=== PATIENT | male | born 1995 | race Caucasian/White ===

== ENCOUNTER 2025-06-26 19:32 | Emergency (ER) | payer OTHER, SELFPAY ==
[2025-06-26 19:40] VITALS: BP 138/80; PULSE 81; RESP 17; TEMP 36.4; O2SAT 97; BMI 27.4
[2025-06-26 20:07] VITALS: BP 120/85; PULSE 78; RESP 18; TEMP 36.4; O2SAT 97
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
[2025-06-26 20:30] LABS: MANUAL DIFF FLAG NO
[2025-06-26] MEDS: Post Exposure Medication Kit 1 KIT PO (20:36)
[2025-06-26] MEDS: Tetracaine HCl 0.5% Oph Sol 5 ML DROPS 3 DROP EYE-BOTH (20:39)
[2025-06-26 20:48] LABS: Alanine Aminotransferase 31 U/L (0-40); Albumin Level 4.4 g/dL (3.5-5.0); Alkaline Phosphatase 58 U/L (39-117); Amylase 41 U/L (28-100); Aspartate Amino Transferase 24 U/L (5-37); Creatinine Clr Calc Pharmacy 134.1; Estimated Glomerular Filt Rate > 60; Total Protein 6.7 g/dL (6.5-8.0)
[2025-06-26 20:49] LABS: Hematocrit 41.8 % (42.0-52.0); Hemoglobin 14.7 g/dl (14.0-18.0); Imm Gran Abs Auto 0.02 X10*3/uL (0.00-0.03); Imm Gran Pct Auto 0.3 % (0.0-0.4); Lymphocytes Absolute Auto 2.4 X10*3/uL (1.2-4.9); Mean Corpuscular HGB Conc 35.2 g/dl (31.0-36.0); Mean Corpuscular Hemoglobin 31.0 pg (27.0-33.0); Mean Corpuscular Volume 88.2 fL (80.0-98.0); NRBC Abs Auto 0.000 X10*3/uL (0.0-0.012); NRBC Pct Auto 0.0 /100WBC (0.0-0.2); Platelet Count 188 X10*3/uL (160-400); Red Blood Count 4.74 X10*6/uL (4.60-5.80); White Blood Count 6.2 X10*3/uL (4.8-10.8)
--- NOTE | 2025-06-26 21:00 | PC.NURSE ---
pt medicated per JAN, eyes irragated w/ 1L NS
[2025-06-26 21:38] VITALS: BP 113/82; PULSE 73; RESP 18; TEMP 37; O2SAT 98
[2025-06-27 08:15] LABS: HBS Num1 3.51 mIU/mL (0-7.99); HBc Num1 0.07 S/CO (0.00-0.79); HBsAGNum1 0.38 S/CO (0.00-0.99); HIV Num 1 0.06 S/CO (0.00-0.99); Hepatitis B Surface Antigen Negative (Negative); ~HepC Num1 0.07 S/CO (0.00-0.79); ~Hepatitis B Surface Antibody NONREACTIVE (Nonreactive); ~Hepatitis C Antibody Nonreactive (Nonreactive)
== END 2025-06-26 21:40 | disposition home or self-care (01) ==
PROVIDERS: Physician Assistant; Emergency Provider Emergency Medicine
DX: Z77.21 Contact with and (suspected) exposure to potentially hazardous body fluids (principal); Z79.899 Other long term (current) drug therapy
CPT/HCPCS: 36415; 80076; 82150; 82565; 85025; 86704; 86706; 86803; 87340; 87389; 99283; 99284

== ENCOUNTER → 2025-07-02 10:15 | Outpatient (BNVA) | payer OTHER, SELFPAY | PROVIDERS: Visit Provider Physician Assistant Medical | DX: Z77.21 Contact with and (suspected) exposure to potentially hazardous body fluids (principal); Z02.79 Encounter for issue of other medical certificate | CPT/HCPCS: 99202 ==

== ENCOUNTER → 2025-07-10 09:54 | Outpatient (BNVA) | payer OTHER, SELFPAY | PROVIDERS: Visit Provider Physician Assistant Medical | DX: Z77.21 Contact with and (suspected) exposure to potentially hazardous body fluids (principal) | CPT/HCPCS: 82150; 82565; 84450; 84460; 85025; 99213 ==

== ENCOUNTER → 2025-07-24 10:30 | Outpatient (BNVA) | payer OTHER, SELFPAY | PROVIDERS: Visit Provider Physician Assistant Medical | DX: Z77.21 Contact with and (suspected) exposure to potentially hazardous body fluids (principal); Z02.79 Encounter for issue of other medical certificate | CPT/HCPCS: 82150; 82565; 84450; 84460; 85025; 99213 ==

== ENCOUNTER → 2025-08-07 09:56 | Outpatient (BNVA) | payer OTHER, SELFPAY | DX: Z77.21 Contact with and (suspected) exposure to potentially hazardous body fluids (principal); Z02.79 Encounter for issue of other medical certificate | CPT/HCPCS: 84450; 84460; 86706; 87389; 99211 ==

== ENCOUNTER → 2025-09-25 10:04 | Outpatient (BNVA) | payer OTHER, SELFPAY ==
--- OUTSIDE RECORDS SUMMARY | 2025-02-13 10:00 | XMS_ITS ---
Author Organization [facility] Address [address] [place] [address] Care Team Providers Care Tape Rules Printing Machine Operator Name Role Phone Jarad Morgan Primary Care Provider Unavail Lydia Abraham Unavailable [phone] REASON FOR VISIT 1 YEAR Encounters Encounter Location Date Provider Diagnosis [facility] 2 [facility] [address] [place] [address] 02/13/2025 Lydia Nataliia Plan Of Treatment Next Appt Details Provider Name:Lydia Tigist, 08/22/2026 10:30:00 AM, 2 [facility], [address], [place], [address], Progress Notes * Dewayne SIERRA RDOB:1995 (30 yo M)Acc No.[id number]:02/13/2025 UNLOCKED PROGRESS NOTE Patient: Gregg mendietaandres Dewayne Delcid Provider: John William MD :1995 A ge:29 Y S ex:Male Date:02/13/2025 Address:[address] [id number] Pcp:LATESHA Dumas Subjective: * Chief Complaints: * 1 YEAR * The named appointment provid er may or may not be the originator of this progress note, and it is not deemed complete until electronically signed by the appointment provider. Sign off status: Pending * Provider: John William MD Date: 0 02/13/2025 Generated for Summer yañez/Janie/Aniya on: 1 11/25/2024 11:47 AM EST
--- OUTSIDE RECORDS SUMMARY | 2025-03-18 08:00 | XMS_ITS ---
Author Organization [facility] Address [address] [place] [address] Care Team Providers Care Service Delivery Management Consultant Name Role Phone Jarad Morgan Primary Care Provider Unavail able Lydia William Unavailable [phone] Angel Lorenz Unavailable [phone] REASON FOR VISIT B/L ankle pain Encounters Encounter Location Date Provider Diagnosis PD-Podiatry [facility] [address] [place] [address] 03/18/2025 Angel Lorenz Plan Of Treatment Next Appt Details Provider Name:Lydia Tigist, 08/22/2026 10:30:00 AM, [facility], [address], [place], [address], Progress Notes * Dewayne LUONG RDOB:1995 (30 yo M)Acc No.[id number]:03/18/2025 UNLOCKED PROGRESS NOTE Patient: Gregg mcknightDewayne Provider: Musa Lorenz DPM :1995 A ge:29 Y S ex:Male Date:03/18/2025 Address:[address] [id number] Pcp:LATESHA Dumas Subjective: * Chief Complaints: * B /L ankle pain * The named appointment provid er may or may not be the originator of this progress note, and it is not deemed complete until electronically signed by the appointment provider. Sign off status: Pending * Provider: Musa Lorenz DPM Date: 0 03/18/2025 Generated for Summer Hernandez on: 11/25/2024 11:48 AM EST
--- OUTSIDE RECORDS SUMMARY | 2025-09-25 11:47 | XMS_ITS | Clinical Summary ---
Author Organization [facility] Address [address] [place] [address] Care Team Providers [employer] Lawyer Name Role Phone Jarad Roberson Primary Care Provider [phone] Andrews Aldana MD Unavailable [phone] Trae Fuller MD Unavailable Lydia William MD Unavailable Ry Almeida MD Unavailable Allergies Active Allergy Reactions Criticality Noted Date Comments Adhesive Rash Low 09/11/2025 Seasonal 11/19/2013 Sulfa (Sulfonamide Antibiotics) Rash Low 04/21 Medications * This document contains information received from the source organization and may not represent a complete record from that organization. hydrOXYzine HCl (ATARAX) 25 MG tablet Take 1 tablet (25 mg total) by mouth See Admin Instructions. Take 1-2 tablets daily as needed for anxiety 30 tablet 0 Active Additional Information Patient taking differently: 10 mgOral4 times daily PRN, as needed for anxiety, (No instructions reported), Reported on 09/18/2025 methylphenidate HCl (RITALIN) 5 MG tablet Take 1 (one) tablet (5 mg total) by mouth 4 (four) times a day. 4 Active dexmethylphenid ate (FOCALIN XR) 10 MG ER multiphase 50-50 capsule Take 1 (one) capsule (10 mg total) by mouth once daily. 4 Active traZODone (DESYREL) 50 MG tabletIndicatio ns:insomnia associated with depression Take 1 (one) tablet (50 mg total) by mouth nightly as needed (sleep). Active albuterol (PROVENTIL HFA;VENTOLIN HFA;PROAIR HFA) 90 mcg/actuation HFA inhaler Inhale 2 puffs every 4 hours by inhalation route. Active ALPRAZolam (XANAX) 0.25 MG tablet TAKE 1 TABLET BY MOUTH EVERY DAY NEEDED FOR SEVERE ANXIETY Active azithromycin (ZITHROMAX) 250 MG tablet TAKE 2 TABLETS (500 MG) BY ORAL ROUTE ONCE DAILY FOR 1 DAY THEN 1 TABLET (250 MG) BY ORAL ROUTE ONCE DAILY FOR 4 DAYS Active emtricitabine-t enofovir, TDF, (TRUVADA) 200-300 mg tablet Take 1 (one) tablet by mouth once daily. Active hydrOXYzine HCL (ATARAX) 10 MG tablet 1 (one) tablet (10 mg total) 2 (two) times a day as needed. Active valACYclovir (VALTREX) 1000 MG tablet Take 1 (one) tablet (1,000 mg total) by mouth once daily as needed. Active multivitamin,tx -minerals tablet Take 1 (one) tablet by mouth once daily. Active Active Problems Problem Noted Date Diagnosed Date History of oppositional defiant disorder 025 Mixed obsessional thoughts and acts 01/09/2020 Bipolar disorder 12/17/2019 Attention deficit hyperactiv ity disorder (ADHD), combined type 07/24/2019 PHILL (generalized anxiety disorder) 07/24/2019 Unspecified mood (affective) disorder 07/24/2019 Resolved Problems Problem Noted Date Diagnosed Date Resolved Date Asthma 11/20/2013 07/24/2019 Multiple fractures 11/20/2013 9 Encounters * This document contains information received from the source organization and may not represent a complete record from that organization. Date Type Department Care Team Description 09/18/2025 12:48 PM EDT - 09/18/2025 2:00 PM EDT Surgery [facility] Ambulatory Surgery [address] [place] [address] Demetrio Shay MD EXCISION OF BACK MASS 09/18/2025 11:02 AM EDT - 09/18/2025 3:05 PM EDT Hospital Encounter [facility] Ambulatory Surgery [address] [place] [address] Demetrio Shay MD Discharge Disposition: Home or Self Care 09/11/2025 1:45 PM EDT Pre-Admission Testing [facility] Pre Admission Testing [address] [place] [address] Adilia Martin RN from Last 3 Months Family History * Patient is adopted Medical History Relation Name Comments No known problems Father Bipolar disorder Maternal Grandfather Not confirmed, question of history of BPAD Major depressive disorder Mother Se asonal variation Relation Name Status Comments Adoptive Mother Alive Father Alive Maternal Grandfather Mother Alive Social History Tobacco Use Types Packs/Day Years Used Date Smoking Tobacco: Former Cigarettes Smokeless Tobacco: Current Chew Tobacco Cessation:Ready to Q uit: Not Asked; Counseling Given: Not Answered Comments:Rare in past Alcohol Use Standard Drinks/Week Comments Yes 1 (1 standard drink = 0.6 oz pur e alcohol) rare Humiliation, Afraid, Rape, and Kick questionnair e Answer Date Recorded Within the last year, have y ou been afraid of your partner or ex-partner? No 09/18/2025 Emotionally Abused Not on file 09/18/2025 Physically Abused Not on file 09/18/2025 Sexually Abused Not on file 09/18/2025 Overall Financial Resource Strain (CARDIA) Answe r Date Recorded How hard is it for you to pa y for the very basics like food, housing, medical care, and heating? Not hard at all 09/18/2025 Hunger Vital Sign Answer Date Recorded Within the past 12 months, y ou worried that your food would run out before you got the money to buy more. Never true 09/18/20 25 Ran Out of Food in the Last Year Not on file 09/18/2025 PRAPARE - Transportation Answer Date Re corded In the past 12 months, has l ack of transportation kept you from medical appointments or from getting medications? No 08/22 In the past 12 months, has l ack of transportation kept you from meetings, work, or from getting things needed for daily living? No 09/18/2025 Housing Stability Vital Sign Answer Jaya e Recorded Unable to Pay for Housing in the Last Year Not o n file 09/18/2025 Number of Times Moved in the Last Year Not on fi le 09/18/2025 At any time in the past 12 m [place], were you homeless or living in a half-way (including now)? No 09/18/2025 Sex and Gender Information Value Date Recorded Sex Assigned at Male 09/19/2019 8:17 PM EDT Legal Sex Male 10:38 PM EST Gender Identity Male 09/19/2019 8:17 PM EDT Sexual Orientation Something else 09/19/2019 8: 17 PM EDT Last Filed Vital Signs Vital Sign Reading Time Taken Comments Blood Pressure 108/73 09/18/2025 2:45 PM EDT Pulse 73 09/18/2025 2:45 PM EDT Temperature 36.3 C (97.4 F) 09/18/2025 2:04 PM EDT Respiratory Rate 14 09/18/2025 2:45 PM EDT Oxygen Saturation 100% 09/18/2025 2:45 PM EDT Inhaled Oxygen Concentration - - Weight 77.1 kg (170 lb) 09/11/2025 2:51 PM EDT Height 172.7 cm (5' 8 ) 09/11/2025 2:51 PM EDT Body Mass Index 25.85 09/11/2025 2:51 PM EDT Plan of Treatment Health Maintenance Due Date Last Done Comments MENINGOCOCCAL B VACCINE (2 of 2 - Trumenba SCDM 2-dose series) 08/26/2018 04/26/2018, 04/20/2017 INFLUENZA VACCINE (#1) 2025 , 09/23/2023, 10/07/2022, Additional history exists DTAP/TDAP/TD VACCINES (9 - Td or Tdap) 10/26/2031 10/26/2021, 02/06/2019, 10/02/2017, Additional history exists ZOSTER VACCINE (1 of 2) 2047 12/02/2008, 08/15 RSV IMMUNIZATION (1 - 1-dose 75+ series) 2072 HIB VACCINES Completed 11/07/1998, 01/19, 1997, Additional history exists MMR VACCINES Completed 10/03/2002, 08/15/1998 VARICELLA VACCINES Completed 12/02/2008, 08/15/1998 HEPATITIS A VACCINES Completed 12/13/2011, 12/13/2011, 12/09/2010, Additional history exists HPV VACCINE Completed 02/02/2013, 01/19, 10/11/2012, Additional history exists MENINGOCOCCAL ACYW VACCINE Completed 10/26, 02/04/2014, 02/04/2014, Additional history exists IPV VACCINES Completed 12/01/2021, 07/22, 08/15/1998, Additional history exists HEPATITIS C SCREENING Completed 06/18/2024 , 06/14/2023, 04/26/2018 COVID-19 IMMUNIZATION Completed 08/30/2024 , 09/23/2023, 09/24/2021, Additional history exists HEPATITIS B VACCINES Completed 07/02/2025, 06/02/2022, 12/01/2021, Additional history exists PNEUMOCOCCAL VACCINE Aged Out No long er eligible based on patient's age to complete this topic ROTAVIRUS VACCINES Aged Out No longer eligible based on patient's age to complete this topic Procedures Procedure Name Priority Date/Time Associated Diagnosis Comments IA EXC TUMOR SOFT TISS BACK/FLANK SUBFASCIAL 5 CM/> 09/18/2025 1:00 PM EDT Mass on back MOLECULAR ONCOLOGY SENDOUTS Routine 09/18/2025 11:05 AM EDT HEPATITIS C ANTIBODY Routine 06/18/2024 3:43 PM EDT Routine general medical examination at a health care facility Encounter for screening for infections with predominantly sexual mode of transmission from Last 3 Months or Most Recently Relevant to Health Maintenance Results * Hepatitis C Antibody (06/18/2024 3:43 PM EDT) HCV Ab Qualitative Non Reac Non Reactive 06/18/2024 8:56 PM EDT [facility] Laboratory Blood specimen (specimen) 06/18/2024 3:43 PM EDT 06/18/2024 6:50 PM EDT us Levy Carver MD LAB BLOOD ORDERABLES Final Res ult [facility] [address] [place] [address] from Last 3 Months or Most Recently Relevant to Health Maintenance Insurance [employer] [facility] Care [employer] Corporation Lawyer Relationship Specialty Start Date End Date Jarad Roberson PA [address] [place], [place] [id number] [address] [place] [address] PCP - General Emergency Medicine 09/11/25 Andrews Aldana MD [address] [place] [address] Gastroenterology 09/11/25 Trae Fuller MD [address] [place] [address] Otolaryngology 09/11/25 Lydia William MD [address] [facility] [address] [place] [address] Urology 09/11/25 Ry Almeida MD [address] [place] [address] [address] [place] [address] Attending Physician Psychiatry 09/11/25
--- OUTSIDE RECORDS SUMMARY | 2025-09-25 11:47 | XMS_ITS | Patient Health Record ---
Author Organization [facility] Address [address] [place] [address] Care Team Providers Care Consultant Name Role Phone Jarad Morgan Primary Care Provider Unavail able Lydia William Unavailable [phone] Angel Lorenz Unavailable [phone] Allergies Allergen (clinical drug ingredient) Drug/Non Drug Allergy documented on EMR Reaction Allergy Type Onset Date Status Substance with sulfonamide structure and antibacterial mechanism of action (substance) Sulfa (uncoded) Rash Allergy Active Reason For Referral No Information Medications Medication SIG (Take, Route, Fr equency, Duration) Notes Start Date End Date Status Gabapentin Unknown traZODone HCl Unknow n hydrOXYzine HCl Unkn own Methylphenidate Unkn own Social History Tobacco Use: Social History Observation Description Date Details (start date - stop date) Never Smoker NA - NA Social History Tobacco Use: Social Info Question Answer Notes Tobacco Use: Date tobacco status assessed 08/23/2025 Status: Never tobacco user Additional Details Category Social Info Options Details Migrated Social History Migrated Social History Drugs/Alcohol:(Alcohol Screen (Audit-C)): Did you have a drink containing alcohol in the past year?: Yes, How often did you have a drink containing alcohol in the past year?: 2 to 4 times a month (2 points), How many drinks did you have on a typical day when you were drinking in the past year?: 1 or 2 drinks (0 point), How often did you have 6 or more drinks on one occasion in the past year?: Never (0 point), Points: 2, Interpretation: Negative ;Sun Protection(Indoor tanning):Denies ;Sun Protection(Sunscreen use):Uses sunscreen occasionally ;Tobacco Use:(Tobacco Use/Smoking:): Are you a: current smoker , How often do you smoke cigarettes?: every day, How many cigarettes a day do you smoke?: 6-10 ; Drugs/Alcohol: (Alcohol Screen):Points: 1, Interpretation: Negative Tobacco Use: (Tobacco Use/Smoking):Are you a:: never smoker Section Notes: works at [employer] works at [employer] works at [employer] works at [employer] works at [employer] works at [employer] works at [employer] works at [employer] Problems Problem Type SNOMED Code ICD Code Onset Dates Problem Status W/U Status Risk Notes Problem 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 Vital Signs Height 67 in 08/23/2025 Weight 150 lbs 08/23/2025 BMI 23.49 kg/m2 08/23/2025 Encounters Encounter Location Date Provider Diagnosis [facility] [address] [facility] [address] [place] [address] 08/23/2025 Lydia Martínezantoine Scrotal varices I86.1 ; Scrotal pain N50.82 and Pelvic and perineal pain unspecified side R10.20 [facility] 04/19/2025 Angel Kelechi Posterior tibial tendinitis, right leg M76.821 ; Posterior tibial tendinitis, left leg M76.822 ; Plantar fasciitis M72.2 and 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 [facility] [address] 03/22/2025 Angel Kelechi Posterior tibial tendinitis, right leg M76.821 ; Posterior tibial tendinitis, left leg M76.822 ; Plantar fasciitis M72.2 and 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 We reviewed his SAs which showed slightly increased agglutination and variable volume with otherwise acceptable values. Patient otherwise asymptomatic from varicocele. No indication to treat varicocele from fertility perspective. We reviewed his SA from 08/2023 which showed sperm agglutination but otherwise acceptable values. We reviewed his sperm antibody testing from 08/2023 which showed negative. He reports no interval issues. Exam stable. Discussed observation vs repair. Patient wishes to hold on repair. Will fu in 1 year with an updated SA. pe 08/23/2025 Scrotal pain (ICD-10 - N50.82) Rare, positional. Hold on varicocele repair. If worsens, can try high dose ibuprofen, scrotal support and warm baths pe 08/23/2025 Pelvic and perineal pain unspecified side (ICD-10 - R10.20) Rare perineal pain. Tender on exam. Discussed referral to PFPT. Patient declines at this time but may call to if changes mind. 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 Right foot with accessory ossicle navicular educated patient on etiology of problem. Patient requires supporting the large longitudinal arch to offload the plantar fascia as well as support the posterior tibial tendon and reduce strain on the tendon. OTC orthotics considering the patient's foot type would not be adequate. Patient requires medically necessary custom molded orthotics to support longitudinal arch as well as offload posterior tibial tendon bilateral foot. Will plan for scanning for custom molded orthotics. Follow-up as needed 04/19/2025 Other prior radiographs 3 views bilateral foot revealing low calcaneal inclination angle with anterior break cyma line bilaterally, no acute fracture or dislocation. Right foot with accessory ossicle navicular educated patient on etiology of problem. Patient requires supporting the large longitudinal arch to offload the plantar fascia as well as support the posterior tibial tendon and reduce strain on the tendon. OTC orthotics considering the patient's foot type would not be adequate. Patient requires medically necessary custom molded orthotics to support longitudinal arch as well as offload posterior tibial tendon bilateral foot. Patient computer scanned for custom molded orthotics today. Follow-up when orthotics fabricated. Plan Of Treatment Future Test Test Name Order Date Semen Analysis w/ Morphology BURT) 2025 Next Appt Details Provider Name:Lydiamaria ines Escoto, 08/22/2026 10:30:00 AM, [address] [facility], [facility] [address], [address], Insurance Providers Payer Name Payer Address Payer Phone Subscriber Number Group Number Insured Name Patient Relationship to Insured Coverage Start Date Coverage End Date [employer] [address] [place] [id number] Dewayne Walker Self - patient is the insured Medical (General) History Medical History History ICD Code Asthma Hay Fever Diarrhea Throat Pain Anxiety/Depression Muscle Aches congenital nevus Surgical History Surgery Date(Month/Year) tonsillectomy wisdom teeth extraction Tonsils/adenoids
--- OUTSIDE RECORDS SUMMARY | 2025-09-25 11:48 | XMS_ITS | Data Portability ---
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 Plan of Treatment Reminders Order Date Submit Date Provider Last Modified By Organization Details Last Modified Time Details Appointments Est Patient 20 2024 11:40A LATESHA Peoples Not available Not available Not available Lab vitamin D, 25-hydrox y, total, serum 2024 025 [facility] ([facility]), [address], [address], 08/15/2025 15:54:46 TSH, serum or plasma 2024 025 [facility] ([facility]), [address], [address], 08/15/2025 15:54:45 HbA1c (hemoglob in A1c), blood 2024 025 [facility] ([facility]), [address], [address], 08/15/2025 15:54:43 lipid panel, serum 2024 025 [facility] ([facility]), [address] [place], [address], 08/15/2025 15:54:44 CMP, serum or plasma 2024 025 [facility] ([facility]), [address], [place], [address], 08/15/2025 09:31:04 urinalysi s, complete [address] [facility] ([facility]), [address], [place], [address], 08/15/2025 09:31:04 CBC, reflex manual diff [address] [facility] ([facility]), [address], [place], [address], 08/15/2025 09:31:05 CMP, serum or plasma 2024 025 [facility] ([facility]), [address], [place], [address], 08/15/2025 15:54:42 hepatitis C virus Ab, serum 2024 025 [facility] ([facility]), [address], [place], [address], 08/15/2025 15:54:44 CT, DNA, qual, PCR, unspecifi ed specimen 2023 024 [facility]. [id number] [facility] ([facility]), [address], [place], [address], 08/13/2025 21:10:45 treponema pallidum igg+igm Ab, serum 2023 024 [facility]. [id number] [facility] ([facility]), [address], [place], [address], 08/13/2025 21:10:45 NG DNA, PCR, urine 2023 024 [facility]. [id number] [facility] ([facility]), [address], [place], [address], 08/13/2025 21:10:45 HIV 1+2 AB + HIV 1 p24 Ag, qualitati ve immunoass ay, serum 2023 024 [facility]. [id number] [facility] ([facility]), [address], [place], [address], 08/13/2025 21:10:45 hepatitis C virus Ab, serum 2023 024 M[facility]. [id number] [facility] ([facility]), [address], [place], [address], 08/13/2025 21:10:45 lipid panel, serum 2023 024 M[facility]. [id number] [facility] ([facility]), [address], [place], [address], 08/13/2025 21:10:45 BMP, serum or plasma 2023 024 M[facility]. [id number] [facility] ([facility]), [address], [place], [address], 08/13/2025 21:10:45 NG DNA, PCR, urine 2022 023 M[facility]. [id number] [facility] ([facility]), [address], [place], [address], 08/13/2025 21:10:45 HIV 1+2 AB + HIV 1 p24 Ag, qualitati ve immunoass ay, serum 2022 023 [facility]. [id number] [facility] ([facility]), [address] [facility], [place], [address], 08/13/2025 21:10:45 treponema pallidum igg+igm Ab, serum 2022 023 M[facility]. [id number] [facility] ([facility]), [address] [facility], [place], [address], 08/13/2025 21:10:45 hepatitis C virus Ab, serum 2022 023 M[facility]. [id number] [facility] ([facility]), [address], [place], [address], 08/13/2025 21:10:45 CT, DNA, qual, PCR, unspecifi ed specimen 2022 023 M[facility]. [id number] [facility] ([facility]), [address], [place], [address], 08/13/2025 21:10:45 CMP, serum or plasma 2022 023 M[facility]. [id number] [facility] ([facility]), [address] [facility], [place], [address], 08/13/2025 21:10:45 CBC 2022 023 M[facility]. [id number] [facility] ([facility]), [address], [place], [address], 08/13/2025 21:10:45 Referral general surgeon referral 2024 025 NADIA Coley MD, [address] [place] [address], [address], 08/22/2025 12:11:25 podiatris t referral - Patient with B/L ankle pain please eval and txt 2024 025 [facility]. [id number] Ryan Dosremedios DPM, [address], [place], [address], 08/13/2025 21:10:45 Procedures None recorded. Surgeries None recorded. Imaging US, upper back - Patient with a palpable 5 cm mass to the right upper back, please eval to r/o lipoma vs cyst. It is enlarging in sixe 2024 025 MIG[facility]ATION. [id number] [facility], [address] [place], [address], 08/13/2025 21:10:45 electroca rdiogram 2023 024 MIGR[place]. [id number] [place], [address] 08/13/2025 21:10:45 Medication Orders None recorded. Patient TargetsNo targets recorded. Patient InstructionsNo instructions recorded. 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 Patient with B/L ankle pain please eval and txt Referring Physician: Servando Jalloh, Internal Medicine, null Encounter Date: 02/18/2025 General Surgeon Referral for Mass of skin of back Referring Physician: Jarad Bhatia, Internal Medicine, Encounter Date: 08/15/2025 Results Created Date Observation Date Name Description Value Unit Range Abnormal Flag Note LastModifiedBy Organization Detail LastModifiedTime 06/14/2006/14/2023 URINE GONOR RHOEA PROBE urine gonorrhoeae probe negati ve Not Available [facility] ([facility]) [address] [facility], [place], [address], 06/15/2023 14:01:29 06/14/20 23 06/14/2023 URINE GONOR RHOEA PROBE urine luzmaria probe performed by footno te Test Perfo rmed by: Eva Islan d [facility]ah [facility] [address] [place] [address] Not Available [facility] ([facility]) [address], [address], 06/15/2023 14:01:29 06/14/20 23 06/14/2023 URINE CHLAM YDIA TRAC PROBE urine chlamydia probe negati ve Not Available [facility] ([facility]) [address], [address], 06/15/2023 14:01:28 06/14/20 23 06/14/2023 URINE CHLAM YDIA TRAC PROBE urine chlamydia probe performed by footno te Test Perfo rmed by: Eva james [facility] [address] [place] [address] Not Available [facility] ([facility]) [address], [address], 06/15/2023 14:01:28 06/14/20 23 06/14/2023 HIV AB/AG COMBO HIV Ab/Ag combo non reac non reacti ve Not Available [facility] ([facility]) [address], [address], 06/14/2023 20:21:34 06/14/20 23 06/14/2023 HEPAT ITIS C VIRUS hepatitis C virus antibody non reac non reacti ve Not Available [facility] ([facility]) [address], [address], 06/14/2023 20:00:20 06/14/20 23 06/14/2023 TREPO NEMA PALLI DUM IGG AND IGM ANTIB FELIX treponema pallidum IgG IgM antibody <0.2 ai 0.0-0. 8 Not Available [facility] ([facility]) [address], [address], 06/14/2023 19:43:40 06/14/20 23 06/14/2023 TREPO NEMA PALLI DUM IGG AND IGM ANTIB FELIX treponema IgG IgM comnt footno te Refer ence Range Antib felix Index (AI) Negat gilberto: < or = 0.8 No Syphi lis IgG/I gM antib odies detec amos. Patie nt is presu med not to have had syphi lis infec tion. Equiv ocal: 0.9 - 1.0 Equiv ocal resul t: Refle x to RPR test Posit gilberto: = or > 1.1 React gilberto: Refle x to RPR test Not Available [facility] ([facility]) [address] [address], [place], [address], 06/14/2023 19:43:40 06/14/20 23 06/14/2023 COMPR EHENS GILBERTO METAB OLIC glucose 99 mg/dL 67-99 Not Available [facility] ([facility]) [address] [address], [place], [address], 06/14/2023 19:06:11 06/14/20 23 06/14/2023 COMPR EHENS GILBERTO METAB OLIC BUN 13 mg/dL 6-24 Not Available [facility] ([facility]) [address] [address], [place], [address], 06/14/2023 19:06:11 06/14/20 23 06/14/2023 COMPR EHENS GILBERTO METAB OLIC creat level 0.88 mg/dL 0.64-1 .27 Not Available [facility] ([facility]) [address], [address], 06/14/2023 19:06:11 06/14/20 23 06/14/2023 COMPR EHENS GILBERTO METAB OLIC Na 140 mEq/L 135-14 5 Not Available [facility] ([facility]) [address] [place], [address], 06/14/2023 19:06:11 06/14/20 23 06/14/2023 COMPR EHENS GILBERTO METAB OLIC K level 4.1 mEq/L 3.6-5. 1 Not Available [facility] ([facility]) [address], [place], [address], 06/14/2023 19:06:11 06/14/20 23 06/14/2023 COMPR EHENS GILBERTO METAB OLIC chloride 104 mEq/L 98-110 Not Available [facility] ([facility]) [address], [place], [address], 06/14/2023 19:06:11 06/14/20 23 06/14/2023 COMPR EHENS GILBERTO METAB OLIC CO2 28 mEq/L 22-32 Not Available [facility] ([facility]) [address], [place], [address], 06/14/2023 19:06:11 06/14/20 23 06/14/2023 COMPR EHENS GILBERTO METAB OLIC anion gap 8 3-13 Not Available [facility] ([facility]) [address], [place], [address], 06/14/2023 19:06:11 06/14/20 23 06/14/2023 COMPR EHENS GILBERTO METAB OLIC albumin 4.5 g/dL 3.5-5. 0 Not Available [facility] ([facility]) [address], [place], [address], 06/14/2023 19:06:11 06/14/20 23 06/14/2023 COMPR EHENS GILBERTO METAB OLIC alkaline phosphatase 61 IU/L 34-104 Not Available [facility] ([facility]) [address], [place], [address], 06/14/2023 19:06:11 06/14/20 23 06/14/2023 COMPR EHENS GILBERTO METAB OLIC ALT 32 IU/L 6-45 Not Available [facility] ([facility]) [address] [facility] [address], [place], [address], 06/14/2023 19:06:11 06/14/20 23 06/14/2023 COMPR EHENS GILBERTO METAB OLIC AST 21 IU/L 10-42 Not Available [facility] ([facility]) [address] [facility] [address], [place], [address], 06/14/2023 19:06:11 06/14/20 23 06/14/2023 COMPR EHENS GILBERTO METAB OLIC bili total 0.7 mg/dL 0.2-1. 3 Not Available [facility] ([facility]) [address] [facility] [address], [place], [address], 06/14/2023 19:06:11 06/14/20 23 06/14/2023 COMPR EHENS GILBERTO METAB OLIC Ca 9.8 mg/dL 8.5-10 .5 Not Available [facility] ([facility]) [address] [facility] [address], [place], [address], 06/14/2023 19:06:11 06/14/20 23 06/14/2023 COMPR EHENS GILBERTO METAB OLIC total protein 7.0 g/dL 6.0-8. 0 Not Available [facility] ([facility] [address] [facility] [address], [place], [address], 06/14/2023 19:06:11 06/14/20 23 06/14/2023 COMPR EHENS GILBERTO METAB OLIC eGFR >60 mL/mi n/1.7 3M abnorm al <60 Not Available [facility] ([facility]) [address] [facility] [address], [place], [address], 06/14/2023 19:06:11 06/14/20 23 06/14/2023 CBC NO DIFF W PLT WBC 6.1 x10ex p9/L 3.5-11 .0 Not Available [facility] ([facility]) [address], [place], [address], 06/14/2023 18:25:48 06/14/20 23 06/14/2023 CBC NO DIFF W PLT RBC 5.01 x10ex p12/L 4.20-5 .50 Not Available [facility] ([facility]) [address], [place], [address], 06/14/2023 18:25:48 06/14/20 23 06/14/2023 CBC NO DIFF W PLT HGB 15.5 g/dL 13.5-1 6.0 Not Available [facility] ([facility]) [address], [place], [address], 06/14/2023 18:25:48 06/14/20 23 06/14/2023 CBC NO DIFF W PLT HCT 44.9 % 37.0-4 7.0 Not Available [facility] ([facility]) [address], [place], [address], 06/14/2023 18:25:48 06/14/20 23 06/14/2023 CBC NO DIFF W PLT MCV 89.7 fL 80.0-9 8.0 Not Available [facility] ([facility]) [address], [place], [address], 06/14/2023 18:25:48 06/14/20 23 06/14/2023 CBC NO DIFF W PLT MCH 30.9 pg 26.0-3 4.0 Not Available [facility] ([facility]) [address], [place], [address], 06/14/2023 18:25:48 06/14/20 23 06/14/2023 CBC NO DIFF W PLT MCHC 34.4 g/dL 32.0-3 6.0 Not Available [facility] ([facility]) [address], [place], [address], 06/14/2023 18:25:48 06/14/20 23 06/14/2023 CBC NO DIFF W PLT RDW 13.0 % 11.5-1 4.5 Not Available [facility] ([facility]) [address], [place], [address], 06/14/2023 18:25:48 06/14/20 23 06/14/2023 CBC NO DIFF W PLT platelet CT 190 x10ex p9/L 150-40 0 Not Available [facility] ([facility]) [address], [place], [address], 06/14/2023 18:25:48 06/14/20 23 06/14/2023 CBC NO DIFF W PLT MPV 8.5 fL 7.4-10 .4 Not Available [facility] ([facility]) [address], [place], [address], 06/14/2023 18:25:48 08/16/20 23 08/16/2023 CBC WITH REFLE X TO MANUA L DIFF WBC 6.2 x10ex p9/L 4.2-10 .0 Not Available [facility] ([facility]) [address], [place], [address], 08/16/2023 18:08:58 08/16/2008/16/2023 CBC WITH REFLE X TO MANUA L DIFF RBC 5.35 x10ex p12/L 4.50-5 .60 Not Available [facility] ([facility]) [address], [place], [address], 08/16/2023 18:08:58 08/16/20 23 08/16/2023 CBC WITH REFLE X TO MANUA L DIFF HGB 16.1 g/dL 13.4-1 6.0 high Not Available [facility] ([facility]) [address], [place], [address], 08/16/2023 18:08:58 08/16/20 23 08/16/2023 CBC WITH REFLE X TO MANUA L DIFF HCT 47.9 % 41.2-5 1.0 Not Available [facility] ([facility] [address], [place], [address], 08/16/2023 18:08:58 08/16/20 23 08/16/2023 CBC WITH REFLE X TO MANUA L DIFF MCV 89.5 fL 85.2-1 00.2 Not Available [facility] ([facility]) [address], [place], [address], 08/16/2023 18:08:58 08/16/20 23 08/16/2023 CBC WITH REFLE X TO MANUA L DIFF MCH 30.1 pg 27.0-3 2.4 Not Available [facility] ([facility] [address], [place], [address], 08/16/2023 18:08:58 08/16/20 23 08/16/2023 CBC WITH REFLE X TO MANUA L DIFF MCHC 33.6 g/dL 29.5-3 4.2 Not Available [facility] ([facility]) [address], [place], [address], 08/16/2023 18:08:58 08/16/20 23 08/16/2023 CBC WITH REFLE X TO MANUA L DIFF RDW 12.7 % 11.8-1 4.4 Not Available [facility] [address], [place], [address], 08/16/2023 18:08:58 08/16/20 23 08/16/2023 CBC WITH REFLE X TO MANUA L DIFF platelet count 215 x10ex p9/L 168-38 2 Not Available [facility] ([facility] [address] [facility] [address], [place], [address], 08/16/2023 18:08:58 08/16/20 23 08/16/2023 CBC WITH REFLE X TO MANUA L DIFF MPV 10.2 fL 9.6-12 .5 Not Available [facility] [address] [facility] [address], [place], [address], 08/16/2023 18:08:58 08/16/20 23 08/16/2023 CBC WITH REFLE X TO MANUA L DIFF NRBC (percent) 0.0 % -1.0-0 .0 Not Available [facility] [address] [facility] [address], [place], [address], 08/16/2023 18:08:58 08/16/20 23 08/16/2023 CBC WITH REFLE X TO MANUA L DIFF NRBC (absolute) 0.0 x10ex p9/L Not Available [facility] [address] [facility] [address], [place], [address], 08/16/2023 18:08:58 08/16/20 23 08/16/2023 CBC WITH REFLE X TO MANUA L DIFF immature granuloctyes (percent) 0.2 % Not Available [facility] [address], [place], [address], 08/16/2023 18:08:58 08/16/20 23 08/16/2023 CBC WITH REFLE X TO MANUA L DIFF immature granuloctyes (absolute) 0.0 x10ex p9/L 0.0-0. 1 Not Available [facility] ([facility] [address], [place], [address], 08/16/2023 18:08:58 08/16/20 23 08/16/2023 CBC WITH REFLE X TO MANUA L DIFF neutrophil (percent) 48.1 % Not Available [facility] [address], [place], [address], 08/16/2023 18:08:58 08/16/20 23 08/16/2023 CBC WITH REFLE X TO MANUA L DIFF neutrophil (absolute) 3.0 x10ex p9/L 1.9-6. 7 Not Available [facility] ([facility] [address], [place], [address], 08/16/2023 18:08:58 08/16/20 23 08/16/2023 CBC WITH REFLE X TO MANUA L DIFF lymphocyte (percent) 34.2 % Not Available [facility] [address], [place], [address], 08/16/2023 18:08:58 08/16/20 23 08/16/2023 CBC WITH REFLE X TO MANUA L DIFF lymphocyte (absolute) 2.1 x10ex p9/L 1.0-3. 3 Not Available [facility] ([facility] [address], [place], [address], 08/16/2023 18:08:58 08/16/20 23 08/16/2023 CBC WITH REFLE X TO MANUA L DIFF monocyte (percent) 11.0 % Not Available [facility] ([facility] [address], [place], [address], 08/16/2023 18:08:58 08/16/20 23 08/16/2023 CBC WITH REFLE X TO MANUA L DIFF monocyte (absolute) 0.7 x10ex p9/L 0.3-0. 9 Not Available [facility] [address] [facility], [place], [address], 08/16/2023 18:08:58 08/16/20 23 08/16/2023 CBC WITH REFLE X TO MANUA L DIFF eosinophil (percent) 5.5 % Not Available [facility] [address] [facility] [address], [place], [address], 08/16/2023 18:08:58 08/16/20 23 08/16/2023 CBC WITH REFLE X TO MANUA L DIFF eosinophil (absolute) 0.3 x10ex p9/L 0.0-0. 4 Not Available [facility] [address] [facility] [address], [place], [address], 08/16/2023 18:08:58 08/16/20 23 08/16/2023 CBC WITH REFLE X TO MANUA L DIFF basophil (percent) 1.0 % Not Available [facility] [address] [facility] [address], [place], [address], 08/16/2023 18:08:58 08/16/20 23 08/16/2023 CBC WITH REFLE X TO MANUA L DIFF basophil (absolute) 0.1 x10ex p9/L 0.0-0. 1 Not Available [facility] [address] [facility] [address], [place], [address], 08/16/2023 18:08:58 06/18/20 24 06/18/2024 URINE GONOR RHOEA PROBE urine gonorrhoeae probe negati ve Not Available [facility] [address] [facility] [address], [place], [address], 06/19/2024 15:04:50 06/18/20 24 06/18/2024 URINE GONOR RHOEA PROBE urine luzmaria probe performed by footno te Test Perfo rmed by: Eva james [facility] misbah [facility] [address] [place] [address] Not Available [facility] [address], [address], 06/19/2024 15:04:50 06/18/20 24 06/18/2024 URINE CHLAM YDIA TRAC PROBE urine chlamydia probe negati ve Not Available [facility] [address], [address], 06/19/2024 15:04:49 06/18/20 24 06/18/2024 URINE CHLAM YDIA TRAC PROBE urine chlamydia probe performed by footno te Test Perfo rmed by: Eva Velozi misbah [facility] [address] [place] [address] Not Available [facility] [address], [address], 06/19/2024 15:04:49 06/18/20 24 06/18/2024 HIV AB/AG COMBO HIV Ab/Ag combo non reac Not Available [facility] [address], [address], 06/18/2024 21:09:37 06/18/20 24 06/18/2024 HEPAT ITIS C VIRUS hepatitis C virus antibody Non Reac non reacti ve Not Available [facility] [address], [address], 06/18/2024 20:56:47 06/18/20 24 06/18/2024 TREPO NEMA PALLI DUM IGG AND IGM ANTIB FELIX treponema pallidum IgG IgM antibody <0.2 ai 0.0-0. 8 Not Available [facility] [address], [address], 06/18/2024 20:31:03 06/18/20 24 06/18/2024 TREPO NEMA PALLI DUM IGG AND IGM ANTIB FELIX treponema IgG IgM comnt footno te Refer ence Range Antib felix Index (AI) Negat gilberto: < or = 0.8 No Syphi lis IgG/I gM antib odies detec amos. Patie nt is presu med not to have had syphi lis infec tion. Equiv ocal: 0.9 - 1.0 Equiv ocal resul t: Refle x to RPR test Posit gilberto: = or > 1.1 React gilberto: Refle x to RPR test Not Available [facility] [address], [address], 06/18/2024 20:31:03 06/18/20 24 06/18/2024 SHERRON STERO L FRACT IONAT ION hours fasting Unknow n hours Not Available [facility] [address], [address], 06/18/2024 20:20:59 06/18/20 24 06/18/2024 SHERRON STERO L FRACT IONAT ION cholesterol level 158 mg/dL 110-19 9 TOTAL SHERRON STERO L Alex able: <200 mg/dL Borde rline high: 200-2 39 mg/dL High: > or =240 mg/dL Not Available [facility] [address], [address], 06/18/2024 20:20:59 06/18/20 24 06/18/2024 SHERRON STERO L FRACT IONAT ION triglyceride s 84 mg/dL 37-141 TRIGL YCERI MISTI Avery l: <150 mg/dL Borde rline high: 150-1 99 mg/dL High: 200-4 99 mg/dL Very high: > or =500 mg/dL Not Available [facility] [address], [address], 06/18/2024 20:20:59 06/18/20 24 06/18/2024 SHERRON STERO L FRACT IONAT ION HDL 59 mg/dL 40-70 Not Available [facility] [address], [address], 06/18/2024 20:20:59 06/18/20 24 06/18/2024 SHERRON STERO L FRACT IONAT ION LDL 82 mg/dL 70-129 LDL SHERRON STERO L Alex able (ASCV D or Diabe manohar): <70 mg/dL Alex able: <100 mg/dL Borde rline : 130-1 59 mg/dL High: 160-1 89 mg/dL Very high: > or =190 mg/dL Not Available [facility] [address], [address], 06/18/2024 20:20:59 06/18/20 24 06/18/2024 SHERRON STERO L FRACT IONAT ION non-HDL cholesterol 99 mg/dL 70-159 NON-H DL SHERRON STERO L Alex able (ASCV D or Diabe manohar): <100 mg/dL Alex able: <130 mg/dL Borde rline : 160-1 89 mg/dL High: 190-2 19 Very high: > or =220 mg/dL Not Available [facility] [address], [address], 06/18/2024 20:20:59 06/18/20 24 06/18/2024 SHERRON STERO L FRACT IONAT ION chol HDL ratio 2.7 2.0-5. 0 Not Available [facility] [address], [address], 06/18/2024 20:20:59 06/18/20 24 06/18/2024 BASIC METAB OLIC PANEL eGFR >120 mL/mi n/1.7 3m_2 >90 Calcu lated using the CKD-e pi 2020 race- free equat ion. Not Available [facility] ([facility]) [address], [place], [address], 06/18/2024 20:20:57 06/18/20 24 06/18/2024 BASIC METAB OLIC PANEL glucose 95 mg/dL 67-99 Not Available [facility] ([facility] [address], [place], [address], 06/18/2024 20:20:57 06/18/20 24 06/18/2024 BASIC METAB OLIC PANEL BUN 10 mg/dL 6-24 Not Available [facility] ([facility] [address], [place], [address], 06/18/2024 20:20:57 06/18/20 24 06/18/2024 BASIC METAB OLIC PANEL creatinine 0.90 mg/dL 0.64-1 .27 Not Available [facility] ([facility] [address], [place], [address], 06/18/2024 20:20:57 06/18/20 24 06/18/2024 BASIC METAB OLIC PANEL BUN creatinine ratio 11 Not Available [facility] ([facility] [address], [place], [address], 06/18/2024 20:20:57 06/18/20 24 06/18/2024 BASIC METAB OLIC PANEL Na 140 mEq/L 135-14 5 Not Available [facility] ([facility] [address], [place], [address], 06/18/2024 20:20:57 06/18/20 24 06/18/2024 BASIC METAB OLIC PANEL K level 4.1 mEq/L 3.6-5. 1 Not Available [facility] [address] [facility] [address] [place], [address], 06/18/2024 20:20:57 06/18/20 24 06/18/2024 BASIC METAB OLIC PANEL chloride 104 mEq/L 98-110 Not Available [facility] ([facility] [address] [facility] [address], [place], [address], 06/18/2024 20:20:57 06/18/20 24 06/18/2024 BASIC METAB OLIC PANEL CO2 29 mEq/L 20-29 Not Available [facility] ([facility] [address] [facility] [address], [place], [address], 06/18/2024 20:20:57 06/18/20 24 06/18/2024 BASIC METAB OLIC PANEL anion gap 7 3-13 Not Available [facility] ([facility]10) [address] [facility] [address], [place], [address], 06/18/2024 20:20:57 06/18/20 24 06/18/2024 BASIC METAB OLIC PANEL Ca 9.6 mg/dL 8.4-10 .2 Not Available [facility] ([facility]10) [address] [facility] [address], [place], [address], 06/18/2024 20:20:57 08/15/20 25 08/15/2025 ANION GAP anion gap 9 mEq/L 4 - 20 Not Available [facility] [address] [place], [address], 08/15/2025 15:54:40 08/15/20 25 08/15/2025 CBC (W DIFF AND PLATE LET) WBC 5.0 K/uL 4.0 - 10.[address] [facility] [address] [place], [address], 08/15/2025 15:54:41 08/15/20 25 08/15/2025 CBC (W DIFF AND PLATE LET) RBC 5.03 basil on/uL 4.50 - 6.00 Not Available [facility] [address] [place] [address], [address], 08/15/2025 15:54:41 08/15/2008/15/2025 CBC (W DIFF AND PLATE LET) hemoglobin 15.4 g/dL 14.0 - 18.0 Not Available [address], [address], 08/15/2025 15:54:41 08/15/2008/15/2025 CBC (W DIFF AND PLATE LET) hematocrit 44.8 % 39.0 - 52.0 Not Available [address], [address], 08/15/2025 15:54:41 08/15/20 25 08/15/2025 CBC (W DIFF AND PLATE LET) MCV 89.1 fL 80 - 99.0 Not Available [address], [address], 08/15/2025 15:54:41 08/15/2008/15/2025 CBC (W DIFF AND PLATE LET) MCH 30.6 pg 25.0 - 34.0 Not Available [address], [address], 08/15/2025 15:54:41 08/15/2008/15/2025 CBC (W DIFF AND PLATE LET) MCHC 34.4 g/dL 31.0 - 36.0 Not Available [facility] [address] [place] [address], [address], 08/15/2025 15:54:41 08/15/20 25 08/15/2025 CBC (W DIFF AND PLATE LET) RDW-SD 42.0 fL 35 - 46 Not Available [address], [address], 08/15/2025 15:54:41 08/15/2008/15/2025 CBC (W DIFF AND PLATE LET) platelet 193 K/uL 150 - 400 PLATE LET COUNT UNIT OF MEASU REMEN T AND REFER ENCE RANGE UPDAT ED 04/[address] [facility] [address] [place] [address], [address], 08/15/2025 15:54:41 08/15/20 25 08/15/2025 CBC (W DIFF AND PLATE LET) neutrophils 48.7 % Not Available [facility] [address] [place] [address], [address], 08/15/2025 15:54:41 08/15/2008/15/2025 CBC (W DIFF AND PLATE LET) lymphocytes 35.0 % Not Available [facility] [address] [place] [address], [address], 08/15/2025 15:54:41 08/15/2008/15/2025 CBC (W DIFF AND PLATE LET) monocytes 12.8 % Not Available [facility] [address] [place] [address], [address], 08/15/2025 15:54:41 08/15/2008/15/2025 CBC (W DIFF AND PLATE LET) eosinophils 2.6 % Not Available [facility] [address] [place] [address], [address], 08/15/2025 15:54:41 08/15/2008/15/2025 CBC (W DIFF AND PLATE LET) basophils 0.9 % Not Available [facility] [address] [place] [address], [address], 08/15/2025 15:54:41 08/15/20 25 08/15/2025 CBC (W DIFF AND PLATE LET) immature granulocytes 0.0 % Not Available [facility] [address] [place] [address], [address], 08/15/2025 15:54:41 08/15/20 25 08/15/2025 CBC (W DIFF AND PLATE LET) nucleated RBC 0.0 NRBC/ 100_W BC 0.0 - 0.0 Not Available [facility] [address] [place] [address], [address], 08/15/2025 15:54:41 08/15/2008/15/2025 CBC (W DIFF AND PLATE LET) # NRBC 0.00 k/uL 0.0 - 0.1 Not Available [address], [address], 08/15/2025 15:54:41 08/15/2008/15/2025 CBC (W DIFF AND PLATE LET) # neutrophils 2.44 K/uL 2.0 - 8.0 Not Available [address], [address], 08/15/2025 15:54:41 08/15/2008/15/2025 CBC (W DIFF AND PLATE LET) # lymphocytes 1.75 K/uL 0.8 - 4.0 Not Available [facility] [address] [place] [address], [address], 08/15/2025 15:54:41 08/15/20 25 08/15/2025 CBC (W DIFF AND PLATE LET) # monocytes 0.64 K/uL 0.2 - 1.0 Not Available [address], [address], 08/15/2025 15:54:41 08/15/2008/15/2025 CBC (W DIFF AND PLATE LET) # eosinophils 0.13 K/uL 0.0 - 0.5 Not Available [address], [address], 08/15/2025 15:54:41 08/15/20 25 08/15/2025 CBC (W DIFF AND PLATE LET) # basophils 0.05 K/uL 0.0 - 0.[address] [facility] [address] [place], [address], 08/15/2025 15:54:41 08/15/20 25 08/15/2025 CBC (W DIFF AND PLATE LET) # immature granulocytes 0.00 K/uL 0.0 - 0.[address] [facility] [address] [place] [address], [address], 08/15/2025 15:54:41 08/15/20 25 08/15/2025 CBC (W DIFF AND PLATE LET) comment DIFFER ENTIAL AND RBC MORPHO LOGY REVIEW ED Not Available [facility] [address] [place] [address], [address], 08/15/2025 15:54:41 08/15/20 25 08/15/2025 COMPR EHENS GILBERTO METAB OLIC PANEL glucose 93 mg/dL 70 - [address] [facility] [address] [place] [address], [address], 08/15/2025 15:54:42 08/15/20 25 08/15/2025 COMPR EHENS GILBERTO METAB OLIC PANEL BUN 11 mg/dL 6 - [address] [facility] [address] [place] [address], [address], 08/15/2025 15:54:42 08/15/20 25 08/15/2025 COMPR EHENS GILBERTO METAB OLIC PANEL creatinine 0.97 mg/dL 0.8 - 1.[address] [facility] [address] [place] [address], [address], 08/15/2025 15:54:42 08/15/20 25 08/15/2025 COMPR EHENS GILBERTO METAB OLIC PANEL BUN/creat ratio 11.3 Not Available [facility] [address] [place] [address], [address], 08/15/2025 15:54:42 08/15/20 25 08/15/2025 COMPR EHENS GILBERTO METAB OLIC PANEL calcium 9.7 mg/dL 8.5 - 10.[address] [facility] [address] [place] [address], [address], 08/15/2025 15:54:42 08/15/2008/15/2025 COMPR EHENS GILBERTO METAB OLIC PANEL osmolality 271.1 mOsm/ kg 270 - [address] [facility] [address] [place] [address], [address], 08/15/2025 15:54:42 08/15/2008/15/2025 COMPR EHENS GILBERTO METAB OLIC PANEL sodium 136 mEq/L 135 - [address] [facility] [address] [place] [address], [address], 08/15/2025 15:54:42 08/15/2008/15/2025 COMPR EHENS GILBERTO METAB OLIC PANEL potassium 4.6 mEq/L 3.5 - 5.[address] [facility] [address] [place] [address], [address], 08/15/2025 15:54:42 08/15/2008/15/2025 COMPR EHENS GILBERTO METAB OLIC PANEL chloride 100 mEq/L 96 - [address] [facility] [address] [place] [address], [address], 08/15/2025 15:54:42 08/15/2008/15/2025 COMPR EHENS GILBERTO METAB OLIC PANEL carbon dioxide 27 mEq/L 19 - [address] [facility] [address] [place] [address], [address], 08/15/2025 15:54:42 08/15/2008/15/2025 COMPR EHENS GILBERTO METAB OLIC PANEL total protein 7.2 gm/dL 6.1 - 8.3 AVERY LS FOR PATIE NTS LYING DOWN COULD BE MUCH 0.7 GM/DL LOWER . Not Available [facility] [address] [place] [address], [address], 08/15/2025 15:54:42 08/15/20 25 08/15/2025 COMPR EHENS GILBERTO METAB OLIC PANEL albumin 4.6 gm/dL 3.5 - 5.2 Not Available [facility] [address] [place] [address], [address], 08/15/2025 15:54:42 08/15/20 25 08/15/2025 COMPR EHENS GILBERTO METAB OLIC PANEL globulin 2.6 gm/dL 1.9 - 3.[address] [facility] [address] [place] [address], [address], 08/15/2025 15:54:42 08/15/20 25 08/15/2025 COMPR EHENS GILBERTO METAB OLIC PANEL A/G ratio 1.8 Not Available [facility] [address] [place] [address], [address], 08/15/2025 15:54:42 08/15/20 25 08/15/2025 COMPR EHENS GILBERTO METAB OLIC PANEL AST (SGOT) 32 U/L 9 - 50 Not Available [facility] [address] [place] [address], [address], 08/15/2025 15:54:42 08/15/20 25 08/15/2025 COMPR EHENS GILBERTO METAB OLIC PANEL ALT (SGPT) 41 U/L 5 - 50 Not Available [facility] [address] [place] [address], [address], 08/15/2025 15:54:42 08/15/20 25 08/15/2025 COMPR EHENS GILBERTO METAB OLIC PANEL alkaline phosphatase 61 U/L 40 - [address] [facility] [address] [place] [address], [address], 08/15/2025 15:54:42 08/15/20 25 08/15/2025 COMPR EHENS GILBERTO METAB OLIC PANEL total bilirubin 0.7 mg/dL 0.0 - 1.[address] [facility] [address] [place] [address], [address], 08/15/2025 15:54:42 08/15/2008/15/2025 EGFR eGFR 109 mL/mi n/1.7 3M >60 EFFEC TIVE DECEM ADDISON 2020, [facility] HAS IMPLE MENTE D NKF-A SN RECOM HARPREET D 2020 CKD-E PI EGFR REFIT CALCU LATIO N THAT DOES NOT INCLU DE A COEFF ICIEN T FOR RACE. FOR MORE INFOR JULIANO JOHNSON E SEE THE ANNOU NCEME NT AT [email or web address] Not Available [facility] [address] [place], [address], 08/15/2025 15:54:42 08/15/2008/15/2025 HEMOG LOBIN A1C hemoglobin A1C 5.1 % 4.2 - 5.6 HEM OGLOB IN A1C DEGRE E OF GLUCO SE CONTR OL <5.7 DECRE ASED RISK OF DIABE MANOHAR 5.7-6 .4 INCRE ASED RISK OF DIABE MANOHAR >6.4 CONSI STENT WITH DIABE MANOHAR NOTE: CONDI TIONS THAT SHORT EN RED CELL SURVI SHAWN,E .G HB SS, HB CC, AND HB SC, OR OTHER CAUSE S OF HEMOL YTIC ANEMI A MAY YIELD FALSE LY LOW RESUL TS. HB F HIGHE R THAN 15% OF TOTAL HEMOG LOBIN MAY YIELD FALSE LY LOW RESUL TS. IRON DEFIC IENCY ANEMI A MAY YIELD FALSE LY HIGH RESUL TS. Not Available [facility] [address] [place], [address], 08/15/2025 15:54:43 08/15/2008/15/2025 HEP C VIRUS ANTIB FELIX hep C virus antibody NON-RE ACTIVE non - reacti ve Not Available [facility] [address] [place], [address], 08/15/2025 15:54:44 08/15/2008/15/2025 LIPID 1 PROFI LE (CHOL ,TRIG ,HDL, LDL) cholesterol 210 mg/dL 0 - [address] [facility] [address] [place] [address], [address], 08/15/2025 15:54:44 08/15/20 25 08/15/2025 LIPID 1 PROFI LE (CHOL ,TRIG ,HDL, LDL) triglyceride 122 mg/dL 0 - [address] [facility] [address] [place] [address], [address], 08/15/2025 15:54:44 08/15/20 25 08/15/2025 LIPID 1 PROFI LE (CHOL ,TRIG ,HDL, LDL) HDL 89 mg/dL >[address] [facility] [address] [place] [address], [address], 08/15/2025 15:54:44 08/15/20 25 08/15/2025 LIPID 1 PROFI LE (CHOL ,TRIG ,HDL, LDL) LDL 96.6 mg/dL <100 <100 OPTIM AL <130 NEAR OPTIM AL Not Available [facility] [address] [place] [address], [address], 08/15/2025 15:54:44 08/15/20 25 08/15/2025 LIPID 1 PROFI LE (CHOL ,TRIG ,HDL, LDL) chol/HDL 2.4 <4.97 Not Available [facility] [address] [place] [address], [address], 08/15/2025 15:54:44 08/15/2008/15/2025 TSH TSH 1.280 uIU/m L 0.400 - 4.[address] [facility] [address] [place] [address], [address], 08/15/2025 15:54:45 08/15/2008/15/2025 URINE (MACR OSCOP IC) color YELLOW Not Available [facility] [address] [place] [address], [address], 08/15/2025 15:54:45 08/15/20 25 08/15/2025 URINE (MACR OSCOP IC) clarity CLEAR Not Available [facility] [address] [place] [address], [address], 08/15/2025 15:54:45 08/15/20 25 08/15/2025 URINE (MACR OSCOP IC) pH 7.0 5.0 - 8.0 Not Available [facility] [address] [place] [address], [address], 08/15/2025 15:54:45 08/15/20 25 08/15/2025 URINE (MACR OSCOP IC) specific gravity 1.006 1.001 - 1.030 Not Available [facility] [address] [place] [address], [address], 08/15/2025 15:54:45 08/15/2008/15/2025 URINE (MACR OSCOP IC) glucose NEGATI VE negati ve Not Available [facility] [address] [place] [address], [address], 08/15/2025 15:54:45 08/15/20 25 08/15/2025 URINE (MACR OSCOP IC) ketone NEGATI VE negati ve Not Available [facility] [address] [place] [address], [address], 08/15/2025 15:54:45 08/15/20 25 08/15/2025 URINE (MACR OSCOP IC) bilirubin NEGATI VE negati ve Not Available [facility] [address] [place] [address], [address], 08/15/2025 15:54:45 08/15/20 25 08/15/2025 URINE (MACR OSCOP IC) urobilinogen 0.2 eu/dL <1.[address] [facility] [address] [place] [address], [address], 08/15/2025 15:54:45 08/15/2008/15/2025 URINE (MACR OSCOP IC) protein NEGATI VE negati ve Not Available [facility] [address] [place] [address], [address], 08/15/2025 15:54:45 08/15/20 25 08/15/2025 URINE (MACR OSCOP IC) occult blood NEGATI VE negati ve Not Available [facility] [address] [place] [address], [address], 08/15/2025 15:54:45 08/15/20 25 08/15/2025 URINE (MACR OSCOP IC) leukocyte esterase NEGATI VE negati ve Not Available [facility] [address] [place] [address], [address], 08/15/2025 15:54:45 08/15/20 25 08/15/2025 URINE (MACR OSCOP IC) nitrite NEGATI VE negati ve Not Available [facility] [address] [place] [address], [address], 08/15/2025 15:54:45 08/15/20 25 08/15/2025 URINE (MACR OSCOP IC) comment: SEE NOTE MICRO SCOPI C RAMU SIS NOT INDIC ATED. DAMIAN ETERS NOT MET. Not Available [facility] [address] [place] [address], [address], 08/15/2025 15:54:45 08/15/20 25 08/15/2025 VITAM IN D 25-HY DROXY vitamin D 25-hydroxy 42.7 NG/mL 30.0 - 100.0 25- 0H VITAM IN D INTER PRETA TION* * DEFIC IENCY --<20 NG/ML INSUF FICIE NCY-- 20-29 NG/ML SUFFI CIENC Y--30 -100 NG/ML Not Available [facility] [address] [place] [address], [address], 08/15/2025 15:54:46 10/30/20 24 elect rocar diogr am No observ ation record ed. [id number] [place], [address] 05/20/2025 20:08:26 10/30/20 24 elect rocar diogr am No observ ation record ed. [id number] [place], [address] 05/20/2025 20:08:26 03/26/20 25 03/22/2025 US, upper back Patifreddie t: DEWAYNE Lafleur : 1994 Suhail kalee Phone: -- US CHEST OR UPPER BACK HISTOR Y: Right upper back lump. TECHNI QUE: Multip le longit udinal and transv erse 2D real time ultras ound images of the right back were acquir ed. COMPAR MELIA: None. FINDIN GS: There is a subcut aneous lesion measur ing 5.2 x 5.3 x 1.4 cm at the site of palpab le abnorm ality withou t internet technology manager al vascul arity. IMPRES LIO: Subcut aneous 5.3 cm lesion which may repres ent a lipoma . Electr onical ly signed : 03/26/20 25 9:01 AM Leonel Pereyra MD For Provid ers who would like to speak to a radiol ogist regard ing this report , please call . Suhail t: SARAH Ciarra DEWAYNE Appt No: [id number] Orderi ng physic lurdes: LATESHA ALMAZAN Exam Date: 2024 Finali zed: 2024 Imagin g Center : [facility] [phone] [id number] [facility] [address] [place] [address], [address], 05/20/2025 20:08:26 03/26/20 25 03/22/2025 US, upper back Suhail t: DEWAYNE Lafleur : 1994 Suhail granda Phone: -- US CHEST OR UPPER BACK HISTOR Y: Right upper back lump. TECHNI QUE: Multip le longit udinal and transv erse 2D real time ultras ound images of the right back were acquir ed. COMPAR MELIA: None. FINDIN GS: There is a subcut aneous lesion measur ing 5.2 x 5.3 x 1.4 cm at the site of palpab le abnorm ality withou t internet technology manager al vascul arity. IMPRES LIO: Subcut aneous 5.3 cm lesion which may repres ent a lipoma . Electr onical ly signed : 03/26/20 9:01 AM Leonel Pereyra MD For Provid ers who would like to speak to a radiol ogist regard ing this report , please call [phone] . Suhail t: DEWAYNE PALOMINO Appt No: [id number] Orderi ng physic lurdes: LATESHA ALMAZAN Exam Date: 2024 Finali zed: 2024 Imagin g Center : [facility] [id number] [facility] [address] [place], [address], 05/20/2025 20:08:26 Result Notes None recorded. Problems Name Problem SNOMED Code Status Onset Date Resolution Date Notes Provider Name and Address Organization Details Recorded Time Attentio n deficit hyperact ivity disorder 568832864 Completed 201801/09/2020 LATESHA Dumas [address] [address], [place], [address] , [facility] 5 09:41:30 Herpes simplex type 1 infectio n 275398991 Active 2018 LATESHA Dumas [address], [place], [address] , [facility] 5 09:42:38 Bipolar disorder 00539420 Completed 201901/09/2020 not active issue Not Available [facility] 5 20:12:16 Generali zed anxiety disorder 78503509 Completed 201901/09/2020 Not Available [facility] 5 20:12:17 Varicoce le 44529748 Active 2019 Not Available [facility] 5 20:12:20 Small bowel obstruct ion 749260591 Active 2020 Not Available [facility] 5 20:12:18 Seasonal allergic rhinitis 603248507 Active 2020 Not Available [facility] 5 20:12:18 Irritabl e bowel syndrome 91993102 Active 2021 Not Available [facility] 20:12:16 Attentio n deficit hyperact ivity disorder 933275993 Active 2023 LATESHA Dumas [address], [place], [address] , [facility] 5 09:41:30 Mass of skin of back 24433923883 9103 Active 2024 LATESHA Dumas [address], [place], [address] , [facility] 5 09:42:50 Herpes labialis 7174053 Active 2024 Not Available [facility] 5 20:12:17 Insomnia 385003397 Active 2024 LATESHA Dumas [address], [place], [address] , [facility] 5 09:42:46 Ankle pain 334536679 Active 2024 Not Available [facility] 5 20:12:18 Hematoch ezia 576159248 Active 2024 Not Available [facility] 5 20:12:18 Anxiety 49604210 Active 2024 LATESHA Dumas [address], [place], [address] , [facility] 5 09:41:42 History of hemorrho id 30726292401 583675 Active 2024 LATESHA Dumas [address], [place], [address] , [facility] 5 09:42:16 History of bowel obstruct ion 17429728062 9108 Active 2024 LATESHA Dumas [address], [place], [address] , [facility] 5 09:42:18 History of gastric ulcer 044343191 Active 2024 LATESHA Dumas [address], [place], [address] , [facility] 5 09:42:19 Exposure to organism Active 2024 LATESHA Dumas [address], [place], [address] , [facility] 5 09:42:23 Problem Notes None recorded. Medical Equipment None Reported. Allergies Allergen ID Allergen Name Allergen Category Reaction Reaction Severity Criticality Documentation Date Start Date Code Code System Note Provider Name and Address Organization Details Recorded Time [id number] Substance with sulfonami de structure and antibacte rial mechanism of action (substanc e) medicatio n rash Not available Not available 05/20/2025 [id number] SNOMED Not Available [facility] 5 20:19:36 Medications Name Sig Start Date Stop Date Status Note LastModified by Organization Details LastModified Time prednison e 10 mg tablet take 4 tablets daily for 2 days then 3 tablets daily for 2 days then 2 tablets daily for 2 days then 1 tablet daily for 2 days active Not Available Not Available No t Available trazodone 50 mg tablet TAKE 1 TABLET BY MOUTH EVERY DAY AT BEDTIME NEEDED FOR SLEEP active Not Available Not Available No t Available cetirizin e 10 mg tablet Take 1 tablet every day by oral route. 06/14 completed Not Available Not Available Not Available L-Lysine 500 mg tablet Take 1 tablet twice a day by oral route. 06/30 completed 06/30/20 20-not taking per patient Not Available Not Available Not Available azithromy maris 250 mg tablet TAKE 2 TABLETS (500 MG) BY ORAL ROUTE ONCE DAILY FOR 1 DAY THEN 1 TABLET (250 MG) BY ORAL ROUTE ONCE DAILY FOR 4 DAYS active Not Available Not Available No t Available methylphe nidate 10 mg tablet TAKE 1 TABLET BY MOUTH TWICE A DAY 06/18 completed Not Available Not Available Not Available valacyclo vir 1 gram tablet TAKE 2 TABLETS BY MOUTH TWICE DAILY X 1 DAY. active Not Available Not Available No t Available methylphe nidate 20 mg tablet Take 1 tablet every day by oral route as needed. 06/30 completed Not Available Not Available Not Available ondansetr on HCl 4 mg tablet 02/03 completed Not Available Not Available Not Available methylphe nidate 5 mg tablet TAKE 1 TABLET BY MOUTH FOUR TIMES A DAY active Not Available Not Available No t Available dextroamp hetamine- amphetami ne 10 mg tablet TAKE 1 TABLET BY MOUTH TWICE A DAY NEEDED ADHD 06/18 completed Not Available Not Available Not Available loperamid e 2 mg tablet Take by oral route. 06/14 completed Not Available Not Available Not Available valacyclo vir 500 mg tablet TAKE 1 TABLET EVERY DAY BY ORAL ROUTE NEEDED. active Not Available Not Available No t Available doxycycli ne monohydra te 100 mg tablet TAKE 1 TABLET BY MOUTH TWICE A DAY active Not Available Not Available No t Available triamcino lone acetonide 0.1 % topical cream Apply to affected skin twice daily for 2 weeks 06/11 completed Not Available Not Available Not Available dexmethyl phenidate 5 mg tablet TAKE 1 TABLET BY MOUTH EVERY DAY 06/14 completed Not Available Not Available Not Available lithium carbonate ER 450 mg tablet,ex tended release TAKE 2 TABLETS BY MOUTH EVERY DAY AT NIGHT 06/30 completed 06/30/20 20-not taking per patient Not Available Not Available Not Available pantopraz ole 20 mg tablet,de layed release Take 2 tablets every day by oral route. 06/14 completed Not Available Not Available Not Available amoxicill in 875 mg tablet TAKE 1 TABLET BY MOUTH TWICE A DAY FOR 10 DAYS 02/18 completed Not Available Not Available Not Available alprazola m 0.25 mg tablet TAKE 1 TABLET BY MOUTH EVERY DAY NEEDED FOR SEVERE ANXIETY active Not Available Not Available No t Available Denavir 1 % topical cream APPLY TO THE AFFECTED AREA(S) BY TOPICAL ROUTE EVERY 2 HOURS DURING WAKING HOURS FOR 4 DAYS 03/04 completed Pt requesti ng refills Not Available Not Available Not Available modafinil 200 mg tablet TAKE 1 TABLET BY MOUTH EVERY DAY 06/30 completed Not Available Not Available Not Available dicyclomi ne 20 mg tablet 02/03 completed Not Available Not Available Not Available lithium carbonate 300 mg capsule 02/03 completed Not Available Not Available Not Available ranitidin e 150 mg tablet Take 1 tablet every day by oral route for 10 days. 06/30 completed Not Available Not Available Not Available carbamide peroxide 6.5 % ear drops INSTILL 5 DROPS INTO AFFECTED EAR(S) BY OTIC ROUTE 2 TIMES PER DAY for 4 days 06/30 completed Not Available Not Available Not Available omeprazol e 20 mg capsule,d elayed release take one cap once a day 08/18 completed Not Available Not Available Not Available amoxicill in 250 mg capsule TAKE 1 CAPSULE BY MOUTH THREE TIMES A DAY 02/18 completed Not Available Not Available Not Available hydroxyzi ne HCl 25 mg tablet Take 1 tablet 3 times a day by oral route. 06/14 completed Not Available Not Available Not Available mupirocin 2 % topical ointment APPLY A SMALL AMOUNT TO THE AFFECTED AREA BY TOPICAL ROUTE 3 TIMES PER DAY NEEDED active Not Available Not Available No t Available gabapenti n 100 mg capsule TAKE 1 CAPSULE BY MOUTH TWICE A DAY NEEDED FOR ANXIETY 06/14 completed Not Available Not Available Not Available methylpre dnisolone 4 mg tablets in a dose pack TAKE 6 TABLETS ON DAY 1 DIRECTED ON PACKAGE AND DECREASE BY 1 TAB EACH DAY FOR A TOTAL OF 6 DAYS 02/18 completed Not Available Not Available Not Available albuterol sulfate HFA 90 mcg/actua tion aerosol inhaler Inhale 2 puffs every 4 hours by inhalati on route. active Not Available Not Available No t Available Cortispor in-TC 3.3 mg-3 mg-10 mg-0.5 mg/mL ear drops,cherise pension 02/18 completed Not Available Not Available Not Available hydroxyzi ne HCl 10 mg tablet TAKE 1 TABLET 4 TIMES A DAY NEEDED FOR ANXIETY active Not Available Not Available No t Available ondansetr on 4 mg disintegr ating tablet Place 1 tablet 4 times a day by translin gual route as needed. 08/15 completed Pt requesti ng a refill Not Available Not Available Not Available methylphe nidate ER 18 mg tablet,ex tended release 24 hr TAKE 1 TABLET BY MOUTH EVERY DAY 06/18 completed Not Available Not Available Not Available fluticaso ne propionat e 50 mcg/actua tion nasal spray,cherise pension SPRAY 1 SPRAY INTO EACH NOSTRIL EVERY DAY 06/11 completed not using Not Available Not Available Not Available dextroamp hetamine- amphetami ne 5 mg tablet TAKE 1 TABLET BY MOUTH EVERY DAY NEEDED 06/18 completed Not Available Not Available Not Available Economy's wort 300 mg capsule Take 1 capsule 3 times a day by oral route. 06/30 completed Not Available Not Available Not Available modafinil 100 mg tablet 06/30 completed Not Available Not Available Not Available hydroxyzi ne pamoate 25 mg capsule TAKE 1 CAPSULE BY MOUTH THREE TIMES A DAY 06/14 completed Not Available Not Available Not Available neomycin- polymyxin -hydrocor t 3.5 mg-10,000 unit/mL-1 % ear drops,cherise p ADMINIST ER 4 DROPS INTO BOTH EARS 4 (FOUR) TIMES A DAY FOR 10 DAYS FOR 7-10 DAYS. 06/18 completed Not Available Not Available Not Available methylphe nidate ER 27 mg tablet,ex tended release 24 hr TAKE 1 TABLET BY MOUTH EVERY DAY 06/18 completed Not Available Not Available Not Available dextroamp hetamine- amphetami ne ER 5 mg 24hr capsule,e xtend release TAKE 1 CAPSULE BY MOUTH EVERY DAY 08/15 completed not taking Not Available Not Available Not Available azithromy maris 500 mg tablet TAKE 1 TABLET (500 MG TOTAL) BY MOUTH DAILY FOR 3 DAYS 12/06 completed Not Available Not Available Not Available atomoxeti ne 40 mg capsule 02/03 completed Not Available Not Available Not Available acyclovir 5 % topical cream APPLY TO AFFECTED AREA 5 TIMES A DAY 08/15 completed Not Available Not Available Not Available aripipraz ole 5 mg tablet 02/03 completed Not Available Not Available Not Available ciproflox acin 0.3 %-dexamet hasone 0.1 % ear drops,cherise pension TAKE 4 DROPS 2 TIMES PER DAY FOR 7 DAYS 02/18 completed Not Available Not Available Not Available emtricita bine 200 mg-tenofo vir disoproxi l fumarate 300 mg tablet TAKE 1 TABLET BY MOUTH DAILY active Not Available Not Available No t Available dexmethyl phenidate ER 10 mg capsule,e xtended release biphasic5 0-50 TAKE 1 CAPSULE BY MOUTH EVERY DAY IN THE MORNING active Not Available Not Available No t Available dexmethyl phenidate ER 20 mg capsule,e xtended release biphasic5 0-50 TAKE 1 CAPSULE BY MOUTH EVERY DAY 06/14 completed Not Available Not Available Not Available chlorhexi dine gluconate 0.12 % mouthwash 06/30 completed Not Available Not Available Not Available cholecalc iferol (vitamin D3) 04/06 completed 1000 unit Not Available Not Available Not Available valacyclo vir 06/14 completed 100 mg Not Available Not Available Not Available ondansetr on 06/14 completed 8 mg Not Available Not Available Not Available fluocinol one acetonide oil 0.01 % ear drops INSTILL 1 TO 2 DROPS INTO AFFECTED EAR TWICE A WEEK 08/15 completed Not Available Not Available Not Available Vyvanse 30 mg capsule TAKE 1 CAPSULE BY MOUTH EVERY DAY IN THE MORNING 06/14 completed Not Available Not Available Not Available Vyvanse 20 mg capsule TAKE 1 CAPSULE BY MOUTH EVERY DAY IN THE MORNING 06/14 completed Not Available Not Available Not Available Zyrtec 10 mg capsule Take 1 capsule every day by oral route. 02/18 completed Not Available Not Available Not Available Xifaxan 550 mg tablet TAKE 1 TABLET BY MOUTH THREE TIMES A DAY FOR 14 DAYS 06/18 completed Not Available Not Available Not Available valacyclo vir (bulk) 100 % powder 06/28 completed Not Available Not Available Not Available Latuda 20 mg tablet 06/30 completed 06/30/20 20-not taking per patient Not Available Not Available Not Available lisdexamf etamine 10 mg capsule TAKE 1 CAPSULE BY MOUTH EVERY DAY 06/18 completed Not Available Not Available Not Available methylphe nidate 06/14 completed 18 mg Not Available Not Available Not Available Fluzone Quad (PF) 60 mcg (15 mcg x 4)/0.5 mL IM syringe active Not Available Not Available Not Available Afluria Qd 2019- (36 mos up)(PF)60 mcg (15 mcg x4)/0.5 mL IM syringe PHARMACY ADMINIST [facility] 06/11 completed Not Available Not Available Not Available BinaxNOW COVID-19 Ag Self Test kit REFER TO MANUFACT URER INSTRUCT IONS INCLUDED IN [PACKAGI NG 04/06 completed Not Available Not Available Not Available Vitals Date Recorded Body height Heart rate Body mass index (BMI) Body weight Body temperature Oxygen saturation Oxygen saturation in Arterial blood by Pulse oximetry Systolic And Diastolic Provider Name and Address Organization Details Last Updated DateTime 5 170.81 cm 93 /min 27.2 kg/m2 52790.6 6 g 97.3 [degF] 97 % 97 % 120/80 mm[Hg] Not Available [facility] 5 20:10:51 Date Recorded Oxygen saturation Oxygen saturation in Arterial blood by Pulse oximetry Respiratory rate Body height Heart rate Body mass index (BMI) Body weight Body temperature Systolic And Diastolic Provider Name and Address Organization Details Last Updated DateTime 3 96 % 96 % 14 /min 170.81 cm 84 /min 25.3 kg/m2 74088.5 6 g 98 [degF] 112/70 mm[Hg] Not Available [facility] 5 20:10:51 Date Recorded Body temperature Heart rate Oxygen saturation Oxygen saturation in Arterial blood by Pulse oximetry Body weight Body mass index (BMI) Body height Systolic And Diastolic Provider Name and Address Organization Details Last Updated DateTime 4 98.2 [degF] 76 /min 99 % 99 % 82342.1 5 g 25.5 kg/m2 170.81 cm 120/78 mm[Hg] Not Available [facility] 5 20:10:51 Date Recorded Body height Body mass index (BMI) Body weight Respiratory rate Body temperature Heart rate Oxygen saturation Oxygen saturation in Arterial blood by Pulse oximetry Systolic And Diastolic Provider Name and Address Organization Details Last Updated DateTime 5 170.81 cm 28 kg/m2 39752.6 3 g 18 /min 97.1 [degF] 88 /min 98 % 98 % 128/80 mm[Hg] Yojana Zaragoza [facility] 5 09:21:34 Date Recorded Body mass index (BMI) Body weight Body height Body temperature Heart rate Oxygen saturation Oxygen saturation in Arterial blood by Pulse oximetry Systolic And Diastolic Provider Name and Address Organization Details Last Updated DateTime 4 25.7 kg/m2 22618.7 4 g 170.81 cm 98.3 [degF] 76 /min 99 % 99 % 120/88 mm[Hg] Not Available [facility] 20:10:51 Social History Question Answer Notes LastModified by Organizat ion Details LastModified Time Tobacco Smoking Status Never Smoker Not Available [facility] 05/20/2025 20:06:21 Do You Have An Advance Directive? Yes [id number] Information not available 05/20/2025 Are You Blind Or Do You Have Difficulty Seeing? No [id number] Information not available 05/20/2025 How Much Tobacco Do You Chew? None [id number] Information not available 05/20/2025 Are You Deaf Or Do You Have Serious Difficulty Hearing? No [id number] 814 Information not available 05/20/2025 Which Illicit Or Recreational Drugs Have You Used? Marijuana [id number].[id number] Information not available 05/20/2025 Do You Have A Medical Power Of Candy Forming Machine Operator? No [id number] Information not available 05/20/2025 What Was The Date Of Your Most Recent Tobacco Screening? 02/18/2025 [id number] Information not available 08/13/2025 Do You Have A Patient Advocate? No [id number] Information not available 05/20/2025 Are You Sexually Active? Yes [id number] Information not available 05/20/2025 At What Age Did You Start Smoking Tobacco? 22 [id number] Information not available 05/20/2025 How Much Tobacco Do You Smoke? No [id number] Information not available 05/20/2025 Do You Use Sunscreen Routinely? No [id number] Information not available 05/20/2025 Has Tobacco Cessation Counseling Been Provided? No [id number] 137 Information not available 08/13/2025 How Many Years Have You Smoked Tobacco? 1 [id number] 814 Information not available 05/20/2025 Do You Have Difficulty Walking Or Climbing Stairs? No [id number] 814 Information not available 05/20/2025 Sex: Unknown Functional Status Question Answer Note LastModified by Organizat ion Details LastModified Time Do you use any illicit or recreational drugs? No [id number] Information not available 05/20/2025 Do you or have you ever used any other forms of tobacco or nicotine? Yes [id number].[id number] Information not available 05/20/2025 What is your level of alcohol consumption? Occasional social MIGRATION.[id number] Information not available 05/20/2025 Do you or have you ever used smokeless tobacco? Never used smokeless tobacco MIGRATION.[id number] Information not available 05/20/2025 Do you have transportation difficulties? No MIGRATION.[id number] 4391 Information not available 05/20/2025 Are you able to walk independently without assistance or assistive devices? YESWOREST MIGRATION.[id number] Information not available 05/20/2025 Are you able to care for yourself independently? 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 No MIGRATION.[id number] 8040 Information not available 05/20/2025 Do you or have you ever used e-cigarettes or vape? Former user of electronic cigarettes MIGRATION.[id number] 3101 Information not available 05/20/2025 What is your exercise level? Moderate MIGRATION.[id number] Information not available 05/20/2025 Mental Status Question Answer Note LastModified by Organizat ion Details LastModified Time Do you have difficulty concentrating, remembering or making decisions? No [id number] Information not available 05/20/2025 Family History Relationship Description Onset Age of this Age Resolved Age Notes LastModified by Organization Details LastModified Time Maternal Grandmother Malignant neoplasm of breast [id number] Not available 05/20/2025 20:08:09 Maternal Grandmother Anemia MIGRATION.[id number] Not available 05/20/2025 20:08:09 Mother Anxiety [id number] Not available 05/20/2025 20:08:09 Mother Depressive disorder MIGRATION.[id number] Not available 05/20/2025 20:08:09 Maternal Grandfather Anxiety MIGRATION.[id number] Not available 05/20/2025 20:08:09 Maternal Grandfather Depressive disorder MIGRATION.[id number] Not available 05/20/2025 20:08:09 Medical History No medical history recorded. Immunizations Vaccine Type Date Status Note Provider Nam e and Address Organization Details Recorded Time COVID-19, mRNA, LNP-S, PF, 100 mcg/0.5mL dose or 50 mcg/0.25mL dose 1 completed Not Available [facility] 05/20/2025 20:18:34 Influenza, split virus, quadrivalent, PF 1 completed Not Available [facility] 05/20/2025 20:18:34 COVID-19 vaccine, vector-nr, rS-Ad26, PF, 0.5 mL 1 completed Not Available [facility] 05/20/2025 20:18:34 meningococcal B, recombinant 7 completed Not Available [facility] 05/20/[facility]25 20:18:34 Influenza, split virus, quadrivalent, PF 5 completed Not Available [facility] 05/20/2025 20:18:35 Influenza, split virus, quadrivalent, PF 4 completed Not Available [facility] 05/20/2025 20:18:35 meningococcal MCV4P 4 completed Not Available [facility] 05/20/2025 20:18:35 Influenza, split virus, quadrivalent, PF 3 completed Not Available [facility] 05/20/2025 20:18:35 HPV, quadrivalent 3 completed Not Available [facility] 05/20/2025 20:18:36 HPV, quadrivalent 2 completed Not Available [facility] 05/20/2025 20:18:36 influenza, unspecified formulation 2 completed Not Available [facility] 05/20/2025 20:18:36 Hep A, ped/adol, 2 dose 1 completed Not Available [facility] 05/20/2025 20:18:36 influenza, unspecified formulation 9 completed Not Available [facility] 05/20/2025 20:18:36 Influenza, split virus, quadrivalent, preservative 9 completed Not Available [facility] 05/20/2025 20:18:37 meningococcal MPSV4 9 completed Not Available [facility] 05/20/2025 20:18:37 DTaP 9 completed Not Available [facility] 05/20/2025 20:18:37 Hib, unspecified formulation 8 completed Not Available [facility] 05/20/2025 20:18:37 influenza, unspecified formulation 8 completed Not Available [facility] 05/20/2025 20:18:37 Influenza, split virus, quadrivalent, preservative 8 completed Not Available [facility] 05/20/2025 20:18:38 OPV, trivalent 8 completed Not Available [facility] 05/20/2025 20:18:38 varicella 8 completed Not Available [facility] 05/20/2025 20:18:38 OPV, Unspecified 8 completed Not Available [facility] 05/20/2025 20:18:38 MMR 8 completed Not Available [facility] 05/20/2025 20:18:38 Hep B, adolescent or pediatric 8 completed Not Available [facility] 05/20/2025 20:18:39 Hep B, unspecified formulation 8 completed Not Available [facility] 05/20/2025 20:18:39 DTaP 8 completed Not Available [facility] 05/20/2025 20:18:39 Hib, unspecified formulation 8 completed Not Available [facility] 05/20/2025 20:18:39 DTaP, unspecified formulation 8 completed Not Available [facility] 05/20/2025 20:18:39 DTaP 8 completed Not Available [facility] 05/20/2025 20:18:40 IPV 8 completed Not Available [facility] 05/20/2025 20:18:40 Hib, unspecified formulation 8 completed Not Available [facility] 05/20/2025 20:18:40 DTaP, unspecified formulation 8 completed Not Available [facility] 05/20/2025 20:18:41 DTaP 7 completed Not Available [facility] 05/20/2025 20:18:41 IPV 7 completed Not Available [facility] 05/20/2025 20:18:41 Hib, unspecified formulation 7 completed Not Available [facility] 05/20/2025 20:18:41 Hep B, adolescent or pediatric 7 completed Not Available [facility] 05/20/2025 20:18:41 Hep B, adolescent or pediatric 7 completed Not Available [facility] 05/20/2025 20:18:42 COVID-19 vaccine, vector-nr, rS-Ad26, PF, 0.5 mL 1 completed Not Available [facility] 05/20/2025 20:18:42 Influenza, split virus, quadrivalent, preservative 0 completed Not Available [facility] 05/20/2025 20:18:42 DTaP, unspecified formulation 9 completed Not Available [facility] 05/20/2025 20:18:42 DTaP, unspecified formulation 7 completed Not Available [facility] 05/20/2025 20:18:42 Influenza, split virus, quadrivalent, preservative 5 completed Not Available [facility] 05/20/2025 20:18:43 Td (adult), 5 Lf tetanus toxoid, preservative free, adsorbed 5 completed Not Available [facility] 05/20/2025 20:18:43 Td(adult) unspecified formulation 5 completed Not Available [facility] 05/20/2025 20:18:43 meningococcal MPSV4 4 completed Not Available [facility] 05/20/2025 20:18:43 HPV, unspecified formulation 3 completed Not Available [facility] 05/20/2025 20:18:43 HPV, unspecified formulation 2 completed Not Available [facility] 05/20/2025 20:18:44 Hep A, ped/adol, 2 dose 2 completed Not Available [facility] 05/20/2025 20:18:44 HPV, quadrivalent 2 completed Not Available [facility] 05/20/2025 20:18:44 HPV, unspecified formulation 2 completed Not Available [facility] 05/20/2025 20:18:44 Hep A, unspecified formulation 2 completed Not Available [facility] 05/20/2025 20:18:44 Influenza, split virus, trivalent, PF 1 completed Not Available [facility] 05/20/2025 20:18:45 Hep A, unspecified formulation 1 completed Not Available [facility] 05/20/2025 20:18:45 Influenza, split virus, trivalent, PF 0 completed Not Available [facility] 05/20/2025 20:18:45 Influenza, split virus, trivalent, preservative 0 completed Not Available [facility] 05/20/2025 20:18:45 Influenza, split virus, quadrivalent, preservative 0 completed Not Available [facility] 05/20/2025 20:18:45 Influenza, split virus, trivalent, preservative 9 completed Not Available [facility] 05/20/2025 20:18:45 Influenza, split virus, quadrivalent, preservative 9 completed Not Available [facility] 05/20/2025 20:18:46 Novel [id number], all formulations 9 completed Not Available [facility] 05/20/2025 20:18:46 Influenza, split virus, trivalent, preservative 9 completed Not Available [facility] 05/20/2025 20:18:46 meningococcal MCV4P 9 completed Not Available [facility] 05/20/2025 20:18:46 varicella 9 completed Not Available [facility] 05/20/2025 20:18:46 meningococcal MPSV4 9 completed Not Available [facility] 05/20/2025 20:18:47 Influenza, split virus, trivalent, preservative 8 completed Not Available [facility] 05/20/2025 20:18:47 Influenza, split virus, quadrivalent, preservative 8 completed Not Available [facility] 05/20/2025 20:18:47 Influenza, split virus, trivalent, preservative 7 completed Not Available [facility] 05/20/2025 20:18:47 Influenza, split virus, quadrivalent, preservative 7 completed Not Available [facility] 05/20/2025 20:18:47 Tdap 7 completed Not Available [facility] 05/20/2025 20:18:48 Influenza, split virus, trivalent, preservative 6 completed Not Available [facility] 05/20/2025 20:18:48 Influenza, split virus, quadrivalent, preservative 6 completed Not Available [facility] 05/20/2025 20:18:48 Influenza, split virus, trivalent, preservative 5 completed Not Available [facility] 05/20/2025 20:18:48 Influenza, split virus, quadrivalent, preservative 5 completed Not Available [facility] 05/20/2025 20:18:48 influenza, unspecified formulation 3 completed Not Available [facility] 05/20/2025 20:18:49 influenza, unspecified formulation 2 completed Not Available [facility] 05/20/2025 20:18:49 MMR 2 completed Not Available [facility] 05/20/2025 20:18:49 Influenza, split virus, quadrivalent, preservative 2 completed Not Available [facility] 05/20/2025 20:18:49 influenza, unspecified formulation 1 completed Not Available [facility] 05/20/2025 20:18:49 Influenza, split virus, quadrivalent, preservative 1 completed Not Available [facility] 05/20/2025 20:18:50 DTaP 1 completed Not Available [facility] 05/20/2025 20:18:50 IPV 1 completed Not Available [facility] 05/20/2025 20:18:50 DTaP, unspecified formulation 1 completed Not Available [facility] 05/20/2025 20:18:50 Influenza, split virus, trivalent, preservative 0 completed Not Available [facility] 05/20/2025 20:18:50 influenza, unspecified formulation 0 completed Not Available [facility] 05/20/2025 20:18:51 Influenza, split virus, quadrivalent, preservative 0 completed Not Available [facility] 05/20/2025 20:18:51 Influenza, split virus, trivalent, PF 4 completed Not Available [facility] 05/20/2025 20:18:51 Influenza, MDCK, quadrivalent, PF 3 completed Not Available [facility] 05/20/2025 20:18:51 COVID-19, mRNA, LNP-S, PF, 50 mcg/0.5 mL 3 completed Not Available [facility] 05/20/2025 20:18:51 COVID-19, mRNA, LNP-S, PF, 50 mcg/0.5 mL 4 completed Not Available [facility] 08/14/2025 00:15:35 Hep B, adult 5 completed Not Available [facility] 08/14/2025 00:15:35 Past Encounters Encounter ID Performer Location Encounter Start Date Encounter Closed Date Diagnosis/Indication Diagnosis SNOMED-CT Code Diagnosis ICD10 Code Diagnosis IMO Codes Diagnosis Note [id number] Levy Carver MD [facility] Closed Location -- Appointme nt Cancelled ,Call [facility] to Schedule [place] [id number] 06/28/2019 00:00:00 06/29/2019 11:39:12 [id number] [place] Termed Provider [facility] Closed Location -- Appointme nt Cancelled ,Call [facility] to Schedule [place] [id number] 03/12/2020 00:00:00 03/13/2020 08:22:41 [id number] [place] Termed Provider [facility] Closed Location -- Appointme nt Cancelled ,[place] [address] 06/30/2020 00:00:00 06/30/2020 15:43:29 [id number] Levy Carver MD [facility] Closed Location -- Appointme nt Cancelled ,[place] [address] 10/22/2020 00:00:00 10/22/2020 18:46:55 [id number] Levy Carver MD [facility] Closed Location -- Appointme nt Cancelled ,[place] [address] 01/28/2021 00:00:00 01/28/2021 19:15:02 [id number] [place] Termed Provider [facility] Closed Location -- Appointme nt Cancelled ,[place] [address] 01/29/2021 00:00:00 01/29/2021 12:26:20 [id number] [place] Termed Provider [facility] Closed Location -- Appointme nt Cancelled ,[place] [address] 02/18/2021 00:00:00 02/19/2021 16:10:55 [id number] Levy Carver MD [facility] Closed Location -- Appointme nt Cancelled ,[place] [address] 04/01/2021 00:00:00 04/01/2021 08:21:28 [id number] PITO TURNER PA-C [facility] Closed Location -- Appointme nt Cancelled ,[place] [address] 05/07/2021 00:00:00 05/07/2021 09:31:46 [id number] PITO TURNER PA-C [facility] Closed Location -- Appointme nt Cancelled ,[place] [address] 06/11/2021 00:00:00 06/11/2021 13:07:55 [id number] PITO TURNER PA-C [facility] Closed Location -- Appointme nt Cancelled ,[place] [address] 08/18/2021 00:00:00 08/18/2021 16:09:09 [id number] Levy Carver MD [facility] Closed Location -- Appointme nt Cancelled ,[place] [address] 06/17/2022 00:00:00 06/17/2022 12:32:46 [id number] PITO TURNER PA-C [facility] Closed Location -- Appointme nt Cancelled ,[place] [address] 12/06/2022 00:00:00 12/06/2022 14:36:00 [id number] Nadia Termed [place] [facility] Closed Location -- Appointme nt Cancelled ,Call [facility] [place] [address] 04/06/2023 00:00:00 04/06/2023 12:22:25 [id number] PITO TURNER PA-C [facility] Closed Location -- Appointme nt Cancelled ,Call [facility] [place] [address] 06/14/2023 00:00:00 06/14/2023 15:07:11 [id number] Levy Carver MD [facility] Closed Location -- Appointme nt Cancelled ,Call [facility] [place] [address] 06/18/2024 00:00:00 06/18/2024 15:50:53 [id number] Levy Carver MD [facility] Closed Location -- Appointme nt Cancelled ,Call [facility] [place] [address] 10/30/2024 00:00:00 10/30/2024 13:21:59 [id number] Yeimi Al PA-C [facility] Closed Location -- Appointme nt Cancelled ,Call [facility] [place] [address] 02/18/2025 00:00:00 02/18/2025 14:51:19 [id number] LATESHA Dumas AMP_RI_[facility] [address] [place] [address] 08/15/2025 09:11:01 08/15/2025 09:40:16 Body mass index 25-29 - overweight [id number] E66.3 [id number] Diet, exercise Exposure to organism 444 727864 Z77.[id number] [facility]. History of gastric ulcer 109405459 Z87.11 [id number] Followed by gi History of bowel obstruction [id number] 90367 Z87.19 [id number] Decompress ed with a ng tube. Followed by gi. 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 Surgery referral. Laboratory test 76557068 Z01.89 [id number] Screening for disorder 520118788 Z13.21 [id number] Hepatitis C screening 41 4858395 Z11.59 [id number] Health Concerns Section Related Observation LastModified by Organization Detai ls LastModified Time None Recorded Concern Status LastModified by Organization Details LastModified Time None Recorded Advance Directives Directive Y: Payers Insurance Date Sequence Insurance Name Policy Number Policy Douglas Covered Member ID Douglas Member ID Guarantor Name 08/26/2025 1 [facility] () Dewayne Walker [id number] Dewayne Walker Notes Date Note Type Note Provider Name and Address Organization Details Recorded Time 08/15/2025 text/html The patient is a 30 yo male who presents for a new patient visit. Former [place] pt.Occasional alcohol use and tobacco use. No colonoscopy. Exercises and eats healthy. Denies depression. Followed by a therapist for adhd, anxiety. Wears glasses. No hearing aides. Wears a bicycle helmet. 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 Treated at [facility]. No detectable HIV.Followed by gi for IBS history gastric ulcer, bowel obstruction.Rare HS flare ups.Wants to see general surgery for back mass.Denies headache, fever, hearing loss , sore throat, neck pain, chest pain, SOB, wheezing, palpitations, syncope, abdominal pain, pelvic pain, nausea, vomiting, diarrhea, blood in stool, dysuria, hematuria, rash, SI, anxiety, depression, extremity pain, extremity swelling.PMHX and medications are reviewed in the chart. LATESHA Dumas [address], [place], [address], [facility] 08/15/2025 09:43:26
--- OUTSIDE RECORDS SUMMARY | 2025-09-25 11:48 | XMS_ITS ---
[facility] Name [facility] Organization Unknown Results Test Name/Text Value Interpretation Date Range Source VITAMIN D 25-HYDROXY 42.7 NG/ML 08/15/2025 30 - 100 [facility] TSH 1.28 uIU/ML 08/15/2025 0.4 - 4.1 [facility] IMMATURE GRANULOCYTES 0.0 % 08/15/2025 [facility] LYMPHOCYTES 35.0 % 08/15/2025 [facility] COMMENT DIFFERENTIAL AND RBC MORPHOLOGY REVIEWED 08/15/2025 [facility] RDW-SD 42.0 fL 08/15/2025 35 - 46 [facility] # MONOCYTES 0.64 K/UL 08/15/2025 0.2 - 1 [facility] HEMATOCRIT 44.8 % 08/15/2025 39 - 52 [facility] MCH 30.6 pg 08/15/2025 25 - 34 [facility] PLATELET 193.0 K/uL 08/15/2025 150 - 400 [facility] RBC 5.03 MILLION/uL 08/15/2025 4.5 - 6 [facility] NUCLEATED RBC 0.0 NRBC/100 WBC 08/15/2025 0 - 0 [facility] BASOPHILS 0.9 % 08/15/2025 [facility] # LYMPHOCYTES 1.75 K/UL 08/15/2025 0.8 - 4 [facility] EOSINOPHILS 2.6 % 08/15/2025 [facility] MCV 89.1 fL 08/15/2025 80 - 99 [facility] # BASOPHILS 0.05 K/UL 08/15/2025 0 - 0.2 [facility] # NRBC 0.0 k/UL 08/15/2025 0 - 0.1 [facility] MONOCYTES 12.8 % 08/15/2025 [facility] WBC 5.0 K/uL 08/15/2025 4 - 10 [facility] NEUTROPHILS 48.7 % 08/15/2025 [facility] HEMOGLOBIN 15.4 g/dL 08/15/2025 14 - 18 [facility] MCHC 34.4 g/dL 08/15/2025 31 - 36 [facility] # NEUTROPHILS 2.44 K/uL 08/15/2025 2 - 8 [facility] # EOSINOPHILS 0.13 K/UL 08/15/2025 0 - 0.5 [facility] # IMMATURE GRANULOCYTES 0.0 K/UL 08/15/2025 0 - 0.1 [facility] HEP C VIRUS ANTIBODY NON-REACTIVE 08/15/2025 - [facility] GLUCOSE NEGATIVE 08/15/2025 - [facility] NITRITE NEGATIVE 08/15/2025 - [facility] LEUKOCYTE ESTERASE NEGATIVE 08/15/2025 - [facility] COMMENT: 08/15/2025 [facility] UROBILINOGEN 0.2 EU/dL 08/15/2025 - 1 [facility] COLOR YELLOW 08/15/2025 [facility] BILIRUBIN NEGATIVE 08/15/2025 - [facility] OCCULT BLOOD NEGATIVE 08/15/2025 - [facility] PROTEIN NEGATIVE 08/15/2025 - [facility] PH 7.0 08/15/2025 5 - 8 [facility] SPECIFIC GRAVITY 1.006 08/15/2025 1.001 - 1.03 [facility] CLARITY CLEAR 08/15/2025 [facility] KETONE NEGATIVE 08/15/2025 - [facility] HEMOGLOBIN A1C 5.1 % 08/15/2025 4.2 - 5.6 [facility] TOTAL BILIRUBIN 0.7 MG/DL 08/15/2025 0 - 1.2 [facility] BUN 11.0 MG/DL 08/15/2025 6 - 20 [facility] CREATININE 0.97 MG/DL 08/15/2025 0.8 - 1.4 [facility] CARBON DIOXIDE 27.0 MEQ/L 08/15/2025 19 - 32 [facility] AST (SGOT) 32.0 U/L 08/15/2025 9 - 50 [facility] CHLORIDE 100.0 MEQ/L 08/15/2025 96 - 106 [facility] ALT (SGPT) 41.0 U/L 08/15/2025 5 - 50 [facility] SODIUM 136.0 MEQ/L 08/15/2025 135 - 146 [facility] A/G RATIO 1.8 08/15/2025 [facility] CALCIUM 9.7 MG/DL 08/15/2025 8.5 - 10.5 [facility] BUN/CREAT RATIO 11.3 08/15/2025 [facility] ALBUMIN 4.6 GM/DL 08/15/2025 3.5 - 5.2 [facility] GLOBULIN 2.6 GM/DL 08/15/2025 1.9 - 3.7 [facility] TOTAL PROTEIN 7.2 GM/DL 08/15/2025 6.1 - 8.3 [facility] GLUCOSE 93.0 MG/DL 08/15/2025 70 - 99 [facility] OSMOLALITY 271.1 mOsm/kg 08/15/2025 270 - 290 [facility] POTASSIUM 4.6 MEQ/L 08/15/2025 3.5 - 5.4 [facility] ALKALINE PHOSPHATASE 61.0 U/L 08/15/2025 40 - 115 [facility] eGFR 109.0 ML/MIN/1.73M 08/15/2025 60 - [facility] ANION GAP 9.0 MEQ/L 08/15/2025 4 - 20 [facility] CHOLESTEROL 210.0 MG/DL Above high normal 08/15/2025 0 - 199 [facility] TRIGLYCERIDE 122.0 MG/DL 08/15/2025 0 - 149 [facility] HDL 89.0 MG/DL 08/15/2025 39 - [facility] CHOL/HDL 2.4 08/15/2025 - 4.97 [facility] LDL 96.6 MG/DL 08/15/2025 - 100 [facility] History of Medication Use Medication Directions Dispensed Refills Start Date End Date Stat ceFAZolin (ANCEF) injection Intravenous, As needed, Starting on Tue09/18/25 at 1332, Until Tue09/18/25 at 1401, Anesthesia Intra-op 09/18/2025 aborted dexamethasone (DECADRON) injection Intravenous, As needed, Starting on Tue09/18/25 at 1338, Until Tue09/18/25 at 1401, Anesthesia Intra-op 09/18/2025 aborted dexmedeTOMIDine (PRECEDEX) injection Intravenous, As needed, Starting on Tue09/18/25 at 1337, Until Tue09/18/25 at 1401, Anesthesia Intra-op 09/18/2025 aborted glycopyrrolate (ROBINUL) injection Intravenous, As needed, Starting on Tue09/18/25 at 1322, Until Tue09/18/25 at 1401, Anesthesia Intra-op 09/18/2025 aborted lactated Ringers infusion Intravenous, Continuous PRN, Starting on Tue09/18/25 at 1156, Until Tue09/18/25 at 1401, Anesthesia Intra-op 09/18/2025 aborted lidocaine (PF) (XYLOCAINE-MPF) 10 mg/mL (1 %) injection Subcutaneous, As needed, Starting on Tue09/18/25 at 1332, Until Tue09/18/25 at 1401, Anesthesia Intra-op 09/18/2025 aborted midazolam (PF) 1 mg/mL injection Intravenous, As needed, Starting on Tue09/18/25 at 1321, Until Tue09/18/25 at 1401, Anesthesia Intra-op 09/18/2025 aborted propofol Intravenous, Continuous PRN, Starting on Tue09/18/25 at 1334, Until Tue09/18/25 at 1401, Anesthesia Intra-op 09/18/2025 aborted predniSONE (DELTASONE) 10 MG tablet Take 4 tablets (40 mg total) by mouth daily for 5 days, THEN 2 tablets (20 mg total) daily for 5 days, THEN 1 tablet (10 mg total) daily for 5 days. Take with food.. 05/16/2025 active dexmethylphenidate (FOCALIN XR) 10 MG 24 hr capsule 04/08/2024 active dexmethylphenidate (FOCALIN XR) 10 MG ER multiphase 50-50 capsule Take 1 (one) capsule (10 mg total) by mouth once daily. 04/08/2024 suspended methylphenidate HCl (RITALIN) 5 MG tablet 04/07/2024 act cira methylphenidate HCl (RITALIN) 5 MG tablet Take 1 (one) tablet (5 mg total) by mouth 4 (four) times a day. 04/07/2024 suspended dextroamphetamine-amphe tamine 5 mg tab TAKE 1 TABLET BY MOUTH EVERY DAY NEEDED 10/05/2023 5 aborted methylphenidate HCl (CONCERTA) 27 MG CR tablet TAKE 1 TABLET BY MOUTH EVERY DAY 08/12/2023 5 aborted hydrOXYzine (ATARAX) 10 MG tablet TAKE 1/2-1 TABLET 3 TIMES A DAY NEEDED FOR ANXIETY 06/05/2023 active traZODone (DESYREL) 50 MG tablet TAKE 1 TABLET BY MOUTH 1 TO 2 HOURS BEFORE BED TIME NEEDED FOR INSOMNIA 06/01/2023 active valACYclovir (VALTREX) 1000 MG tablet TAKE 2 TABLETS BY MOUTH TWICE DAILY X 1 DAY. 05/05/2023 aborted hydrOXYzine HCl (ATARAX) 25 MG tablet Take 1 tablet (25 mg total) by mouth See Admin Instructions. Take 1-2 tablets daily as needed for anxiety 11/26/2019 suspended albuterol (PROVENTIL HFA;VENTOLIN HFA;PROAIR HFA) 90 mcg/actuation HFA inhaler Inhale 2 puffs every 4 hours by inhalation route. suspended ALPRAZolam (XANAX) 0.25 MG tablet TAKE 1 TABLET BY MOUTH EVERY DAY NEEDED FOR SEVERE ANXIETY suspended azithromycin (ZITHROMAX) 250 MG tablet TAKE 2 TABLETS (500 MG) BY ORAL ROUTE ONCE DAILY FOR 1 DAY THEN 1 TABLET (250 MG) BY ORAL ROUTE ONCE DAILY FOR 4 DAYS suspended emtricitabine-tenofovir , TDF, (TRUVADA) 200-300 mg tablet Take 1 (one) tablet by mouth once daily. suspended hydrOXYzine HCL (ATARAX) 10 MG tablet 1 (one) tablet (10 mg total) 2 (two) times a day as needed. suspended multivitamin,tx-mineral s tablet Take 1 (one) tablet by mouth once daily. suspended traZODone (DESYREL) 50 MG tablet Take 1 (one) tablet (50 mg total) by mouth nightly as needed (sleep). suspended valACYclovir (VALTREX) 1000 MG tablet Take 1 (one) tablet (1,000 mg total) by mouth once daily as needed. suspended Allergies Allergen Reaction Severity Comment Documented Date Source Statu s ADHESIVE RASH 09/11/2025 [facility] active SULFA (SULFONAMIDE ANTIBIOTICS) RASH 05/05/2018 [facility] active POLLEN EXTRACTS 11/19/2013 [facility] ac tive SEASONAL 11/19/2013 [facility] active Problems Problem Status Onset Date Problem Type Date of Resolution Source History of oppositional defiant disorder active 2025-08-08 ProblemAct [facility] Mixed obsessional thoughts and acts active 2020-01-09 ProblemAct [facility] Rhus dermatitis active EncounterDiagnosisAct [facility] Immunizations Vaccine Date Source Lot Number Status Bexsero Prefilled Syringe 04/26/2018 [facility] [id number] completed Fluarix Quadrivalent Prefilled Syringe 10/14/2017 [facility] [id number] completed Encounters Encounter Type Encounter Reason Primary Diagnosis Location Date Ambulatory Mass on back Mass on back [facility] 1 Ambulatory [facility]ARDS 09/18/2025 Ambulatory Skin complaint [facility] [place] 05/16/2025 Ambulatory LAB TEST INSECT BITE (NONVENOMOUS), UNSPECIFIED THIGH, SEQUELA [facility] 04/30/2025 Ambulatory [facility] 04/29/2025 Care Team Organization Name Specialty Phone Email Start Date End Da te [facility] SUSIE BHATIA Primary Care 09/19/2025 [facility] Primary Care [facility] Primary Care [facility] PCP Parachute Marker 05/01/2025 05/29/2025 [facility] Primary Care 04/29/2025 07/27/2025
--- OUTSIDE RECORDS SUMMARY | 2025-09-25 11:48 | XMS_ITS | Clinical Summary ---
[facility] Address [address] [place] [address] Care Team Providers Care Quill Machine Operator Name Role Phone Pcp, No Primary Care Provider [phone] Allergies Active Allergy Reactions Criticality Noted Date Comments Pollen Extracts 11/19/2013 Sulfa (Sulfonamide Antibiotics) Rash Low 04/21 Medications hydrOXYzine (ATARAX) 10 MG tablet TAKE 1/2-1 TABLET 3 TIMES A DAY NEEDED FOR ANXIETY 06/05/2023 Active traZODone (DESYREL) 50 MG tablet TAKE 1 TABLET BY MOUTH 1 TO 2 HOURS BEFORE BED TIME NEEDED FOR INSOMNIA 06/01/2023 Active methylphenidate HCl (RITALIN) 5 MG tablet 04/07/2024 Active dexmethylphenid ate (FOCALIN XR) 10 MG 24 hr capsule 04/08/2024 Active Immunizations Immunization Administration Dates Next Due Bexsero Prefilled Syringe 04/26/2018 Fluarix Quadrivalent Prefilled Syringe 7 Social History Tobacco Use Types Packs/Day Years Used Date Smoking Tobacco: Never Passive Smoke Exposure: Never Smokeless Tobacco: Never Tobacco Cessation:Counseling Given: Yes Alcohol Use Standard Drinks/Week Comments Never 0 (1 standard drink = 0.6 oz pur e alcohol) PHQ-2 Answer Date Recorded PHQ-2 Total Score 0 05/15/2025 Sex and Gender Information Value Date Recorded Sex Assigned at Not on file Legal Sex Male 3:17 PM EST Gender Identity Not on file Sexual Orientation Not on file Last Filed Vital Signs Vital Sign Reading Time Taken Comments Blood Pressure 128/78 04/13/2025 2:40 PM EDT Pulse 82 04/13/2025 2:40 PM EDT Temperature 36.7 C (98 F) 04/13/2025 2:40 PM EDT Respiratory Rate 18 04/13/2025 2:40 PM EDT Oxygen Saturation 97% 04/13/2025 2:40 PM EDT Inhaled Oxygen Concentration - - Weight 68 kg (150 lb) 11/30/2022 4:08 PM EST Height 172.7 cm (5' 8 ) 11/30/2022 4:08 PM EST Body Mass Index 22.81 11/30/2022 4:08 PM EST Plan of Treatment Health Maintenance Due Date Last Done Comments SDOH Screening Reminder: Annually for all adults ([facility] ) 2015 DTaP/Tdap/Td Vaccines ([facility]) (1 - Tdap) 2016 Flu Vaccination: Yearly for ages 18mos through 64 years (or Modifier)([facility]) 06/21/2025 10/14/2017 COVID-19 Vaccine Screening: Initial Series and Booster Status ([facility]) ( - season) 2025 Depression: Screening Annually using PHQ-2/9 in Adults 18 yrs or above (or HM Modifier)([facility]) 05/15/2026 05/15/2025 Zoster/Shingles Vaccine Series Screening: Adults aged 18+ yrs (or HM Modifiers)([facility]) (1 of 2) 2047 Hepatitis C Virus Infection in Adolescents and Adults: Screening (or Modifier) ([facility]) Completed 06/18/2024, 06/14/2023 Pneumococcal Vaccination Screening: Pts 0-19 & 19-49 yrs of age ([facility]) Aged Out No longer eligible b ased on patient's age to complete this topic Medical Devices Not on file Insurance Care Teams Quill Machine Operator Relationship Specialty Start Date End Date Pcp, No PCP - General Family Medicine 04/13/25
--- OUTSIDE RECORDS SUMMARY | 2025-09-25 11:48 | XMS_ITS | Clinical Summary ---
Author Organization [facility] Address [address] [place] [address] Care Team Providers Care Halver Machine Operator Name Role Phone Raymondjacquelyn Lvey J Primary Care Provider [phone] Allergies Active Allergy Reactions Criticality Noted Date Comments Sulfa (Sulfonamide Antibiotics) 05/2021 Medications omeprazole (PRILOSEC) 20 mg capsule TAKE 1 CAPSULE BY MOUTH EVERY MORNING 90 capsule 05/29/2021 Active Active Problems Problem Noted Date Diagnosed Date SBO (small bowel obstruction) ([facility]) 03/27/20 21 Surgical History Surgery Date Site/Laterality Comments TONSILLECTOMY Medical History Medical History Date Comments GERD (gastroesophageal reflux disease) Social History Tobacco Use Types Packs/Day Years Used Date Smoking Tobacco: Every Day Cigarettes Smokeless Tobacco: Never Alcohol Use Standard Drinks/Week Comments Not Currently 0 (1 standard drink = 0.6 oz pur e alcohol) PHQ-2 Answer Date Recorded PHQ-2 SUBTOTAL 0 03/27/2021 Interpersonal Safety Answer Date Record ed Physically Hurt Never 01/30/2021 Verbally Threaten Not on file 01/30/2021 Sex and Gender Information Value Date Recorded Sex Assigned at Not on file Legal Sex Male 9:49 EST Gender Identity Male 03/27/2021 8:43 EDT Sexual Orientation Not on file Obstetrics History Last Filed Vital Signs Vital Sign Reading Time Taken Comments Blood Pressure 114/71 03/29/2021 0923 EDT Pulse 70 03/28/2021 2139 EDT Temperature 36.8 C (98.2 F) 03/29/2021 0923 EDT Respiratory Rate 16 03/29/2021 0923 EDT Oxygen Saturation 97% 03/29/2021 0923 EDT Inhaled Oxygen Concentration - - Weight 65.8 kg (145 lb) 03/27/2021 0817 EDT Height 172.7 cm (5' 8 ) 03/27/2021 0817 EDT Body Mass Index 22.05 03/27/2021 0817 EDT Plan of Treatment Health Maintenance Due Date Last Done Comments Hepatitis C Screen 1997 Hepatitis B Vaccine (1 of 3 - 19+ 3-dose series) 08/02 Pneumococcal Immunization (1 of 2 - PCV) 2016 COVID-19 Vaccine (1 - 2023-25 season) 2024 Insurance Advance Directives For more information, please contact: [phone] * Full Code (Latest Code Status on File) Date Activated Date Inactivated Comments 03/27/2021 17:39 03/29/2021 13:03 Question Answer Comments Reason for decision includes: Full code consistent with overall plan of care Who participated in the discussion? Not Discusse d Care Teams Halver Machine Operator Relationship Specialty [place] [address] PCP - General 03/27/21
--- OUTSIDE RECORDS SUMMARY | 2025-09-25 11:48 | XMS_ITS | Patient Health Record ---
Author Organization [facility] Urology [facility] r Address [address] [place] [address] Care Team Providers Care General Manager Farm Name Role Phone ARTURO MORLEY Primary Care Provider PAM Magana Unavailable [phone] Raf SALAZAR, Nhan Unavailable Unavailable Allergies Allergen (clinical drug ingredient) Drug/Non Drug Allergy documented on EMR Reaction Allergy Type Onset Date Status Substance with sulfonamide structure and antibacterial mechanism of action (substance) Sulfa (uncoded) Rash Allergy Active Reason For Referral No Information Medications Medication SIG (Take, Route, Fr equency, Duration) Notes Start Date End Date Status Methylphenidate Acti ve hydrOXYzine HCl Acti ve traZODone HCl Active Gabapentin Active Social History Tobacco Use: Social History Observation Description Date Details (start date - stop date) Never Smoker NA - NA Tobacco Use/Smoking Question Answer Notes Are you a: never smoker Alcohol Screen Question Answer Notes Did you have a drink contain ing alcohol in the past year? Yes How often did you have a dri nk containing alcohol in the past year? monthly or less (1 point) How many drinks did you have on a typical day when you were drinking in the past year? 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
--- OUTSIDE RECORDS SUMMARY | 2025-09-25 11:48 | XMS_ITS | Encounter Summary ---
Author Organization [facility] Address [address] [place] [address] Care Team Providers Care Bone Puller Name Role Phone Levy Carver Primary Care Provider [phone] Reason for Visit * Reason Comments Other Encounter Details Date Type Department Care Team (Late st Contact Info) Description 05/29/2021 Refill [facility]- [address] [address] Carolann Rebolledo, PAMarisolC [address] [place] [address] Other Social History Tobacco Use Types Packs/Day Years [...] 8:43 EDT Sexual Orientation Not on file documented as of this encounter Functional Status * Are you deaf or do you have serious difficulty hearing? Answer Date of Assessment Author No 03/27/2021 23:00 EDT Lucretia Abad, JANIE * Are you blind or do you have serious difficulty seeing, even when wearing glasses? Answer Date of Assessment Author No 03/27/2021 23:00 EDT Lucretia Abad RN * Do you have serious difficulty walking or climbing stairs? (5 years old or older) Answer Date of Assessment Author No 03/27/2021 23:00 EDT Lucretia Abad RN * Do you have difficulty dressing or bathing? (5 years old or older) Answer Date of Assessment Author No 03/27/2021 23:00 EDT Lucretia Abad RN * Because of a physical, mental, or emotional condition, do you have difficulty doing errands alone such as visiting a doctor's office or shopping? (15 years old or older) Answer Date of Assessment Author No 03/27/2021 23:00 EDT Lucretia bAad RN documented as of this encounter Mental Status * Because of a physical, mental, or emotional condition, do you have serious difficulty concentrating, remembering, or making decisions? (5 years old or older) Answer Entry Date Author No 03/27/2021 23:00 EDT Lucretia Abad RN documented in this encounter Ordered Prescriptions Prescription Sig Dispense Quantity Refills Last Filled Start Date End Date omeprazole (PRILOSEC) 20 mg capsule TAKE 1 CAPSULE BY MOUTH EVERY MORNING 90 capsule 05/29/2021 documented in this encounter Plan of Treatment Not on file documented as of this encounter Visit Diagnoses Not on filedocumented in this encounter Discontinued Medications Medication Sig Discontinue Reason Start Date End Da te omeprazole (PRILOSEC) 20 mg capsule Take 1 Cap by mouth every morning for 90 days. 03/02/2021 05/29/2021 documented as of this encounter Care Teams Bone Puller Relationship Specialty [place] [address] PCP - General 03/27/21 documented as of this encounter
--- OUTSIDE RECORDS SUMMARY | 2025-09-25 11:48 | XMS_ITS | Patient Health Record ---
Author Organization [facility] Address [address] [place] [address] Care Team Providers Care Slate Splitter Name Role Phone Mehul SALAZAR, Levy [facility] [phone] Allergies Allergen (clinical drug ingredient) Drug/Non Drug Allergy documented on EMR Reaction Allergy Type Onset Date Status sulfamethoxazole / trimethoprim Bactrim Unknown Drug Allergy Active Reason For Referral No Information Medications Medication SIG (Take, Route, Frequency, Duration) Notes Start Date End Date Status Albuterol (Eqv-ProAir HFA) 90 mcg/inh 2 puff(s) inhaled every 6 hours; Duration: 30 day(s) prn Activ e Problems Problem Type SNOMED Code ICD Code Onset Dates Problem Status W/U Status Risk Notes Problem Allergic rhinitis (29029910) Other allergic rhinitis (J30.89) Active confirmed Problem Mild intermittent asthma (327956237) Mild intermittent asthma, uncomplicated (J45.20) Active confirmed Plan Of Treatment Pending Test Test Name Order Date beltran 06/29/2021 Respiratory Panel & IgE (37885) 06/29/20 21 Insurance Providers Payer Name Payer Address Payer Phone Subscriber Number Group Number Insured Name Patient Relationship to Insured Coverage Start Date Coverage End Date [employer] [place] [employer] [address] [place] [address] [id number] Geovanna Hutchison Parent Medical (General) History Medical History History ICD Code bowel obstruction allergic rhinitis allergic conjunctivitis asthma- mild Surgical History Surgery Date(Month/Year) tonsilectomy Hospitalization History Reason Date(Month/Year) bowel obstruction
== END ==
LOC: WCCF 10:20
DX: Z77.21 Contact with and (suspected) exposure to potentially hazardous body fluids (principal)
CPT/HCPCS: 84450; 84460; 86803; 87389; 99211